=== PATIENT | female | born 1930 | race Caucasian/White ===

== ENCOUNTER 2016-05-19 12:19 | Inpatient (IN) | payer MEDICARE, OTHER ==
[~2016-05-19] VITALS: Ht 152.4 cm; Wt 66.8 kg
[2016-05-19 12:28] VITALS: BP 135/78; PULSE 106; RESP 20; O2SAT 95
[2016-05-19] MEDS ORDERED: SULF1TAB34 PO (12:46)
[2016-05-19] MEDS ORDERED: HYDR-4003 PO (12:46)
[2016-05-19] MEDS ORDERED: AMOX-366 PO (12:46)
[2016-05-19] MEDS ORDERED: AMLO5TAB2 PO (12:48)
[2016-05-19] MEDS ORDERED: CYCL1DRO BOTH_EYES (12:48)
[2016-05-19] MEDS ORDERED: MULT-1073 PO (12:48)
[2016-05-19] MEDS ORDERED: ASPI81TA3 PO (12:48)
[2016-05-19] MEDS ORDERED: 0.9% Sodium Chloride 1,000 ML IV ONE (13:13)
--- NOTE | 2016-05-19 13:35 | ED.REPORT ---
HPI-Extremity Problem Lower Date of Service May 19, 2016 ED Provider: Dominic Stephens PA-C Wilfrid is an 86-year-old female who presents with a chief complaint of right foot cellulitis. Patient states that she first noticed a sore on her right great toe approximately one month ago. About one week later she was started on antibiotics including Augmentin and Bactrim. These were ineffective and she is on her second round. Pain, redness, swelling is increasing. She was asked to present to the emergency department by Dr. Alanis who feels she should be admitted. Patient admits right foot pain as well as new pain in her left great toe, but denies any other complaints. History of Sjogren syndrome and hypertension. Nursing Notes Stated Complaint: INFECTION IN R FOOT Chief Complaint: Extremity Trauma Nursing Notes Reviewed: Yes Allergies: Coded Allergies: No Known Allergies (Unverified , 05/19/16) Scheduled Amlodipine (Amlodipine) 5 Mg Tablet 5 MG PO DAILY Amoxicillin/Clav K 875-125 mg (Augmentin 875-125 mg) 1 Each Tablet 1 TABLET PO BID Aspirin Chew (Aspirin Chew) 81 Mg Chew 81 MG PO DAILY Cyclosporine (Restasis) 1 Each Droperette 1 DROP BOTH_EYES BID Fluocinolone 0.01% Cream (Fluocinolone 0.01% Cream) 60 Applic/15 Gm Cream 1 APPLIC TOPICAL BID Multivits-Min/FA/Lycopene/Lut (Centrum Silver Tablet) 1 Each Tablet 1 EACH PO DAILY Neomy Sulf/Bacitra/Polymyxin B (Triple Antibiotic Ointment) 1 Appl/0.9 Gm Packet 1 APPL TOP DAILY apply to sore on foot/toe Sulfamethoxazole/Trimeth 400-80 mg (Bactrim 400-80 mg) 1 Each Tablet 1 TABLET PO BID Scheduled PRN Hydrocodone-Acetaminophen 5-325 mg (Hydrocodone-Acetaminophen 5-325 mg) 1 Each Tablet 1 TABLET PO Q6H PRN PRN For Pain General Time Seen by MD: 13:01 Chief Complaint Foot injury right Past Medical History Past Medical History Sjgren syndrome Reports: Hypertension Review of Systems General: Denies fever, chills, malaise. HEENT: Denies congestion, headache, sore throat. Respiratory: Denies dyspnea, cough, shortness of breath, wheezing. Cardiovascular: Denies chest pain, palpitations. Gastrointestinal: Denies vomiting, diarrhea, abdominal pain. Genitourinary: Denies frequency, urgency, dysuria, hematuria. Otherwise as noted in HPI. Physical Exam General: Well developed, thin, no acute distress. Right foot: Redness, swelling, heat across forefoot and advancing up dorsal surface towards leg. Tenderness over the great toe. Area of eschar forming on great toe. Open sore between fourth and fifth digits. 2, 1 cm crusted sores on the dorsal surface of the mid foot. Head: Atraumatic, normocephalic. Eyes: No scleral icterus or injection. No discharge. Vision grossly intact. ENT: Voice clear, hearing grossly intact. Respiratory: Regular rate and rhythm. Breath sounds present, clear to auscultation and equal bilaterally. Cardiovascular: Regular rate and rhythm, without murmur, gallop or rub. No pedal edema. PT and DP pulses are not appreciated. Gastrointestinal: Abdomen flat and non-tender without guarding or rebound. Bowel sounds normoactive. Skin: Warm and dry. Neurological: Grossly nonfocal. Psychological: Alert and oriented. Speech appropriate, linear and logical. Behavior appropriate. Initial Vital Signs Vital Signs (First) Date Time Temp Pulse Resp B/P Pulse Ox O2 Delivery O2 Flow Rate FiO2 05/19/16 12:28 36.4 106 20 135/78 95 Room Air Pulse measured at approximately 90 bpm by CHANTELLE Stephens at 1315 Initial VS: Reviewed Interpretation & Diagnostics Lab Results Interpretation Result Diagram: 05/19/16 1400 05/19/16 1400 Test 05/19/16 14:00 White Blood Count 16.0th/mm3 (3.8-10.1) Red Blood Count 4.49mil/mm3 (3.90-5.20) Hemoglobin 12.8g/dL (12.0-15.6) Hematocrit 38.5% (35.0-46.0) Mean Corpuscular Volume 85.7fL (81-100) Mean Corpuscular Hemoglobin 28.5pg (27.0-35.0) Mean Corpuscular Hemoglobin Concent 33.2% (32.0-37.0) Red Cell Distribution Width 14.8% (12.3-15.4) Platelet Count 238bil/L (150-400) Neutrophils (%) (Auto) 74.0% (40-74) Lymphocytes (%) (Auto) 15.5% (14-46) Monocytes (%) (Auto) 8.2% (4-12) Eosinophils (%) (Auto) 1.7% (0-5) Basophils (%) (Auto) 0.3% (0-3) Sodium Level 137mEq/L (134-144) Potassium Level 4.7mEq/L (3.5-5.2) Chloride Level 102mEq/L (97-108) Carbon Dioxide Level 21mmol/L (18-29) Blood Urea Nitrogen 24mg/dL (8-27) Creatinine 1.30mg/dL (0.57-1.00) Estimat Glomerular Filtration Rate 56mL/min (>59) Glucose Level 96mg/dL (60-99) Lactic Acid Level 0.8mmol/L (0.4-2.0) Calcium Level 9.2mg/dL (8.5-10.1) Total Bilirubin 0.3mg/dL (0.0-1.2) Aspartate Amino Transf (AST/SGOT) 20U/L (0-50) Alanine Aminotransferase (ALT/SGPT) 11U/L (0-32) Alkaline Phosphatase 86U/L (25-165) Total Protein 7.0g/dL (6.4-8.4) Albumin 3.6g/dL (3.4-5.0) Re-Eval/Medical Decision Med Decision/Clinical Course This is an 86-year-old female who 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 History of hypertension but denies DM. Digital exam reveals redness and warmth and swelling in the forefoot, an area of eschar on the great toe, and a sore between the fourth and fifth digit. Patient is slightly tachycardic. White cell count of 16, lactate 0.8. Afebrile. Started the patient on IV ceftriaxone and vancomycin. Dr. Lopez called discussed the case with the hospitalist and arranged admission. Discharge & Departure Impression: Primary Impression: Cellulitis of foot Disposition: ADMITTED TO HOSPITAL Referrals: Dafne Avendano (PCP) EDSupervising Provider for APC: Luis Felipe Lopez MD Attending Statement Attending attestation: I saw this patient in conjunction with Dominic Stephens PA-C. I was present for all jones portions of the history taking and physical examination. I agree with the workup, evaluation, treatment and disposition. Dominic Medina MD, PA-C May 19, 2016 13:35 Luis Felipe Lopez MD May 19, 2016 20:31
[2016-05-19 14:16] LABS: BASOPHILS % (AUTO) 0.3 % (0-3); EOSINOPHILS % (AUTO) 1.7 % (0-5); MONOCYTES % (AUTO) 8.2 % (4-12); Mean Corpuscular Hemoglobin 28.5 pg (27.0-35.0); Mean Corpuscular Volume 85.7 fL (81-100); Platelet Count 238 bil/L (150-400)
--- NOTE | 2016-05-19 14:28 | DRSVH ---
PROCEDURE: X-RAY RIGHT FOOT COMPLETE, MINIMUM THREE VIEWS ([id number]) INDICATIONS: cellulitis TECHNIQUE: 3 views of the foot were acquired. COMPARISON: 04/25/2016 FINDINGS: Bones: Medial subluxation of the second proximal phalanx with corner fracture at the lateral base of the second proximal phalanx as before. No lytic lesions are identified. Arthritic changes also presen t at the tarsometatarsal joints, lateral greater than medial. Soft tissues: No tibiotalar joint effusion. Achilles tendon appears normal. IMPRESSION: 1. No significant interval change in the appearance of arthritis, second digit subluxation and corner fracture. Dictated by: Arley Roca M.D. on 05/19/2016 at 14:26 Approved by: Arley Roca M.D. on 05/19/2016 at 14:26
[2016-05-19] MEDS ORDERED: FLUO15CR TOPICAL (15:15)
[2016-05-19] MEDS ORDERED: cefTRIAXone Inj 2,000 MG in IV Premix 1 EACH IV ONE (15:15)
[2016-05-19] MEDS ORDERED: Vancomycin Dose per Pharmacist XX ONE (15:15)
--- NOTE | 2016-05-19 15:41 | PCM.HPMED ---
Subjective Date of Service May 19, 2016 Primary Provider: Admitting Physician: Primary Care Physician: Dafne Avendano Attending Physician: Chief Complaint: Right great toe pain/cellulitis History of Present Illness: Wilfrid is an 86-year-old female who presents with a chief complaint of right foot cellulitis. Patient states that she first noticed a sore on her right great toe approximately one month ago. About one week later she was started on antibiotics including Augmentin and Bactrim. These were ineffective and she is on her second round. Pain, redness, swelling is increasing. She was asked to present to the emergency department by Dr. Alanis who feels she should be admitted. Patient admits right foot pain as well as new pain in her left great toe, but denies any other complaints. History of Sjogren syndrome and hypertension. Review of Systems: Other than the pain in the foot of the entire review of systems is negative as noted below Gen.: No fevers chills weight loss weight gain Eyes: no visual disturbances or blurring vision HEENT: No nose/throat drainage, no pain in ears or throat, no hearing loss Lymph: No lymph nodes noted Cardiac: No chest pain, orthopnea, PND, palpitations , pedal edema or dyspnea on exertion Pulmonary: no cough, wheezing or bringing up of sputum GI: No anorexia nausea vomiting blood or black in the stool : no dysuria hematuria urinary frequency or decrease in urine output Musculoskeletal: Joint swelling no joint pain no new muscle aches or back pain Neuro: No syncope, seizures no loss of consciousness no new focal weakness, numbness or tingling Psychiatric: New new anxiety insomnia or depression Endocrine: No new heat or cold intolerances polyuria or polydipsia Hematology: No lymphadenopathy or easy bleeding or bruising noted skin: No new rashes, stasis dermatitis Allergies Coded Allergies: No Known Allergies (Unverified , 05/19/16) Home Medications Scheduled Amlodipine (Amlodipine) 5 Mg Tablet 5 MG PO DAILY Amoxicillin/Clav K 875-125 mg (Augmentin 875-125 mg) 1 Each Tablet 1 TABLET PO BID Aspirin Chew (Aspirin Chew) 81 Mg Chew 81 MG PO DAILY Cyclosporine (Restasis) 1 Each Droperette 1 DROP BOTH_EYES BID Fluocinolone 0.01% Cream (Fluocinolone 0.01% Cream) 60 Applic/15 Gm Cream 1 APPLIC TOPICAL BID Multivits-Min/FA/Lycopene/Lut (Centrum Silver Tablet) 1 Each Tablet 1 EACH PO DAILY Neomy Sulf/Bacitra/Polymyxin B (Triple Antibiotic Ointment) 1 Appl/0.9 Gm Packet 1 APPL TOP DAILY apply to sore on foot/toe Sulfamethoxazole/Trimeth 400-80 mg (Bactrim 400-80 mg) 1 Each Tablet 1 TABLET PO BID Scheduled PRN Hydrocodone-Acetaminophen 5-325 mg (Hydrocodone-Acetaminophen 5-325 mg) 1 Each Tablet 1 TABLET PO Q6H PRN PRN For Pain PMH HTN Sjogren syndrome Surgical History None reported Family History No known history of early diabetes or heart disease Exam Vital Signs Vital Sign - Last Date Time Temp Pulse Resp B/P Pulse Ox O2 Delivery O2 Flow Rate FiO2 05/19/16 12:28 36.4 106 20 135/78 95 Room Air Exam Gen.- A+ O 3 no apparent distress. Thin pleasant elderly female Eyes- open conjunctiva clear, pupils equal nonicteric Mouth- oral mucosa moist, no exudate ENT- ears normal, nose normal Neck- supple/trach midline CVS- RRR no murmur or gallop, JVD less than 6 cm Lungs CTA, no accessory muscle usage GI- NABS/NT soft Musc- moving 4 patient has hand deformities swollen neck and ulnar deviation consistent with rheumatoid arthritis, bilateral hammertoes crossing over from first to second and erythema of the one on the left spreading up and there is an area of the lunate indication is apparently already improving according to the nurse. Neuro- cranial nerves II through XII intact to gross examination, nonfocal Skin- warm and dry, no rashes/lesions/wounds noted Psych- pleasant and appropriate, Lab and Diagnostics Labs LFTs WNL Result Diagram: 05/19/16 1400 05/19/16 1400 X-Rays, CTs and MRIs R foot XR second digit subluxation and corner fracture. Concurrently reviewed by myself Assessment & Plan 86-year-old female outpatient failure of cellulitis of the left foot treated with amoxicillin and Bactrim. She was sent here for IV antibiotics by Dr. Alanis her ribber Cellulitis left foot-I will treat with Unasyn stopping the vancomycin and Rocephin. She has no history of MRSA, and no suggestion of it now. Rheumatoid arthritis- by physical exam we will check RA panel and ESR Bilateral hammertoes- ongoing trauma to the foot are probably the source of the skin breakdown and cellulitis, I cannot explain the fissures on her heels, we will go ahead and use Lac-Hydrin cream hopefully this helps Leukocytosis-likely secondary to infection follow up labs in the morning HTN-adequately controlled on home amlodipine. LASHELL vs CKD3-follow creatinine and adjust meds accordingly, elevated creatinine could be a result of Bactrim. Follow-up BMP in the a.m. Prophylaxis-DVT with heparin and SCDs, GI not indicated Disposition- full code from home? Marcello Ireland MD May 19, 2016 15:41
[2016-05-19 15:59] VITALS: BP 129/51; PULSE 49; RESP 18; O2SAT 94
[2016-05-19] MEDS ORDERED: Polyethylene Glycol (PEG) 17 Gm Powder PO PRN (16:05)
[2016-05-19] MEDS ORDERED: Alum-Mag Hydrox-Simeth 30 mL Suspension PO PRN (16:05)
[2016-05-19] MEDS ORDERED: Ondansetron 2 mg/mL 2 mL Inj IVPUSH PRN (16:05)
[2016-05-19 16:10] VITALS: BP 129/51; PULSE 49; RESP 18; O2SAT 94
[2016-05-19] MEDS: Sodium Chloride LOK Flush 10 mL Syringe IVFLUSH SCH (16:30)
[2016-05-19] MEDS ORDERED: 0.9% Sodium Chloride 250 ML ONE (16:45)
[2016-05-19 16:50] VITALS: BP 131/71; PULSE 85; RESP 18; O2SAT 91
[2016-05-19] MEDS ORDERED: NEOM1PAC2 TOP (17:07)
--- NOTE | 2016-05-19 17:12 | NUR ---
Admission Pt arrived to [facility] approx 1630, A&Ox3. Accompanied by dtr. Med Rec done by admit RN.
[2016-05-19 20:58] VITALS: BP 140/90; PULSE 74; RESP 18; O2SAT 96
[2016-05-19] MEDS: CYCLOSPORINE 0.05% AFFECT_EYE SCH (22:02)
[2016-05-19] MEDS: Heparin 5,000 Unit/mL Inj SUBQ SCH (22:02)
[2016-05-19] MEDS: Ampicillin-Sulbactam Inj 3,000 MG in 0.9% Sodium Chloride 100 ML IV SCH (22:02)
[2016-05-20] MEDS: Sodium Chloride LOK Flush 10 mL Syringe IVFLUSH SCH ×3 (00:30→14:22)
[2016-05-20 00:59] VITALS: BP 128/78; PULSE 80; RESP 18; O2SAT 97
[2016-05-20 01:10] LABS: APPEARANCE,URINE HAZY (CLEAR,HAZY); COLOR,URINE STRAW (YELLOW); OCCULT BLOOD,URINE NEGATIVE (NEGATIVE); UROBILINOGEN,URINE NORMAL (NORMAL)
[2016-05-20 05:47] VITALS: BP 161/64; PULSE 76; RESP 18; O2SAT 96
[2016-05-20 06:49] LABS: BASOPHILS % (AUTO) 0.4 % (0-3); EOSINOPHILS % (AUTO) 2.3 % (0-5); MONOCYTES % (AUTO) 7.7 % (4-12); Mean Corpuscular Hemoglobin 28.2 pg (27.0-35.0); Mean Corpuscular Volume 86.4 fL (81-100); NEUTROPHILS % (AUTO) 69.7 % (40-74); Platelet Count 229 bil/L (150-400)
--- NOTE | 2016-05-20 07:15 | NUR ---
Fall pt was found on sitting on her bottom on the floor next to her bed by the MINIATURE SET CONSTRUCTOR at 05:40. VSS at that time, BP 161/62, HR 76, RR 18, O2 sats 96% on RA, afebrile. pt reported she fell before using the toilet and that she "crawled back to bed but couldn't lift myself up", pt reported "I have been down here for at least an hour". pt denies having any pain other than her feet by saying "my feet are sore, that's why I'm here". Primary RN observed pt's skin and did not report seeing any acute changes from previous physical assessment. pt stated "[facility]" when asked why she did not use her call light. Bed alarm was reported as on and that the volume was low. pt reported "this is all my fault, it is only my pride that is hurt". pt verbalized understanding of when and how to use call light, credit charge authorizer reviewed call light button function and where to find call light on the bed if needed, pt verbalized understanding again. call light placed within reach, bed alarm on, care on-going.
[2016-05-20 07:42] LABS: ERYTHROCYTE SEDIMENTATION RATE 46 mm/hr (0-40)
--- NOTE | 2016-05-20 07:49 | NUR ---
Fall (see also charge nurse Melly García's note) PAYMENT PROCESSOR report pt found sitting on the floor at the bedside around 0550 while primary RN back and forth doing admission in room 3010 and taking care of pts at far the other end of the floor room 3026 to 3030. RN come to check pt, and incident report to charge nurse immediately and charge nurse to check pt with RN together, pt sitting on the floor, alert and orientedx3, denies hit her head or arms and legs, no bruises and abrasions or s/s of fx noted, VSS. RN last checked pt around 0420, pt appears lying in bed sleeping, bed alarm on, instructed PAYMENT PROCESSOR to keep bed alarm on always, PAYMENT PROCESSOR reports pt "trying to be independent". RN reinforce pt please please use call light when need OOB, [place] alarm on, oriented pt to call light again, call light within reach, pt verbalizes understanding and will use call light when need OOB. Addendum: 05/20/16 at 1846 by ELYSIA LYON RN When doing the rounds, the database report writer JOSE R taught and demonstrated to pt the use of call light when she need get out of bed or any other needs, pt alert and orientedx3, verbalized understanding, and she appeared knew how to use call light when she wanted to. Biofuels Plant Manager JOSE R set bed alarm before left pt room. When pt got out of bed and subsequently fell, database report writer JOSE R luz did not alarm.
[2016-05-20] MEDS: HYDROcodone-APAP 5-325 mg Tablet PO PRN (10:53)
[2016-05-20] MEDS: CYCLOSPORINE 0.05% AFFECT_EYE SCH ×2 (10:54→20:50)
[2016-05-20] MEDS: Heparin 5,000 Unit/mL Inj SUBQ SCH ×2 (10:55→20:49)
--- NOTE | 2016-05-20 11:38 | PCM.CHPPOD ---
Subjective Date of service May 20, 2016 History of Present Illness This 86-year-old female has been followed in the past several weeks as an outpatient for ischemic necrosis of the right hallux. Patient has critical limb ischemia on the right arterial duplex was ordered and was sent to cardiology for evaluation. Patient was seen by Dr. Sheldon who reordered the arterial duplex. This patient was last seen by me on 05/17/2016 was scheduled to be seen by Dr. Sheldon on 05/30/2016. Patient complained of some increasing foot pain and had developed a scratch on the ankle due to the postoperative boot. Her daughter had contacted me regarding referral to a vascular surgeon stating she was concerned about limb loss of the potential for which we had discussed. The right foot at last visit did show circumferential hyperemia appear which it was felt may have been ischemic hyperemia versus early cellulitis. The soft tissue necrosis of the hallux was non-progressive. I made wound care recommendations, reinitiated antibiotic therapy and expedited patient's visit to Dr. Sheldon to 05/26/2016. At that visit Dr. Sheldon felt the foot was cellulitic and patient presented to [facility] ED and was admitted through the hospitalist service. Patient has been nothing by mouth in preparation for surgery although apparently does not have revascularization procedure scheduled at this time. Patient is comfortable other than left foot pain denies fever chills or malaise. She is receiving morphine and Vicodin for right foot discomfort. Allergy Allergies: Coded Allergies: No Known Allergies (Unverified , 05/19/16) Medications Amlodipine (Amlodipine) 5 Mg Tablet 5 MG PO DAILY Amoxicillin/Clav K 875-125 mg (Augmentin 875-125 mg) 1 Each Tablet 1 TABLET PO BID Aspirin Chew (Aspirin Chew) 81 Mg Chew 81 MG PO DAILY Cyclosporine (Restasis) 1 Each Droperette 1 DROP BOTH_EYES BID Fluocinolone 0.01% Cream (Fluocinolone 0.01% Cream) 60 Applic/15 Gm Cream 1 APPLIC TOPICAL BID Hydrocodone-Acetaminophen 5-325 mg (Hydrocodone-Acetaminophen 5-325 mg) 1 Each Tablet 1 TABLET PO Q6H PRN PRN For Pain Multivits-Min/FA/Lycopene/Lut (Centrum Silver Tablet) 1 Each Tablet 1 EACH PO DAILY Neomy Sulf/Bacitra/Polymyxin B (Triple Antibiotic Ointment) 1 Appl/0.9 Gm Packet 1 APPL TOP DAILY apply to sore on foot/toe Sulfamethoxazole/Trimeth 400-80 mg (Bactrim 400-80 mg) 1 Each Tablet 1 TABLET PO BID Past Medical History Surgeries: Yes (appendectomy) Medical History: Surgical History: Social History Hx Alcohol Use: No Hx Substance Use: No Podiatry Consult Exam Vital Signs Vital Sign - Last Date Time Temp Pulse Resp B/P Pulse Ox O2 Delivery O2 Flow Rate FiO2 05/20/16 08:13 Supplement Oxygen 05/20/16 05:47 36.2 76 18 161/64 96 Intake and Output 05/19/16 05/19/16 05/20/16 Cumulative From/Thru 15:00 23:00 07:00 05/19/16 12:28 - 05/20/16 06:27 Intake Total 1000 ml 436 ml 437 ml 1873 ml Output Total 400 ml 400 ml Balance 1000 ml 436 ml 37 ml 1473 ml Intake Oral 436 ml 437 ml 873 ml IV Total 1000 ml 1000 ml Output Urine Total 400 ml 400 ml # Voids 1 1 Result Diagram: 05/20/16 0557 05/20/16 0557 Lab Test 05/19/16 14:00 05/20/16 00:00 05/20/16 05:57 Lactic Acid Level 0.8mmol/L (0.4-2.0) Total Bilirubin 0.3mg/dL (0.0-1.2) Aspartate Amino Transf (AST/SGOT) 20U/L (0-50) Alanine Aminotransferase (ALT/SGPT) 11U/L (0-32) Alkaline Phosphatase 86U/L (25-165) Total Protein 7.0g/dL (6.4-8.4) Albumin 3.6g/dL (3.4-5.0) Urine Color Straw (YELLOW) Urine Appearance Hazy (CLEAR,HAZY) Urine pH 6.0 (5.0-8.0) Urine Specific [place] 1.015 (1.003-1.035) Urine Protein Negativemg/dL (NEG,TRACE) Urine Glucose (UA) Negativemg/dL (NEGATIVE) Urine Ketones Negativemg/dL (NEGATIVE) Urine Occult Blood Negative (NEGATIVE) Urine Nitrite Negative (NEGATIVE) Urine Bilirubin Negative (NEGATIVE) Urine Urobilinogen Normalmg/dL (NORMAL) Urine Leukocyte Esterase Small (NEGATIVE) Urine RBC 0-2/hpf (0-2) Urine WBC 0-5/hpf (0-5) Urine Epithelial Cells Occasional/hpf (NONE-MOD) Urine Crystals None seen (NONE SEEN) Urine Bacteria Few/hpf (NONE-FEW) Urine Hyaline Casts None/lpf (NONE) Urine Granular Casts None seen (NONE SEEN) Urine Waxy Casts None seen (NONE SEEN) Urine Red Blood Cell Casts None seen (NONE SEEN) Urine White Blood Cell Casts None seen (NONE SEEN) Urine Mucus None seen (None Seen) Urine Trichomonas None seen (NONE SEEN) Urine Yeast None (NONE SEEN) Urinalysis Comment None Urine Culture Reflexed Indicated Hold Urine Received (Received) White Blood Count 13.5th/mm3 (3.8-10.1) Red Blood Count 4.86mil/mm3 (3.90-5.20) Hemoglobin 13.7g/dL (12.0-15.6) Hematocrit 42.0% (35.0-46.0) Mean Corpuscular Volume 86.4fL (81-100) Mean Corpuscular Hemoglobin 28.2pg (27.0-35.0) Mean Corpuscular Hemoglobin Concent 32.6% (32.0-37.0) Red Cell Distribution Width 14.7% (12.3-15.4) Platelet Count 229bil/L (150-400) Neutrophils (%) (Auto) 69.7% (40-74) Lymphocytes (%) (Auto) 19.5% (14-46) Monocytes (%) (Auto) 7.7% (4-12) Eosinophils (%) (Auto) 2.3% (0-5) Basophils (%) (Auto) 0.4% (0-3) Erythrocyte Sedimentation Rate 46mm/hr (0-40) Sodium Level 140mEq/L (134-144) Potassium Level 4.5mEq/L (3.5-5.2) Chloride Level 102mEq/L (97-108) Carbon Dioxide Level 21mmol/L (18-29) Blood Urea Nitrogen 18mg/dL (8-27) Creatinine 1.22mg/dL (0.57-1.00) Estimat Glomerular Filtration Rate 60mL/min (>59) Glucose Level 94mg/dL (60-99) Uric Acid 5.5mg/dL (2.6-7.2) Calcium Level 9.3mg/dL (8.5-10.1) Diagnostics 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 Exam Lower Extremities: Right: Edema localized Extremity cool Other Lower Extremity Pulses: Absent: Left Dorsalis Pedis Left Posterior Tibal Right Dorsalis Pedis Right Posterior Tibal Podiatry WOUND : Wound Location/Description There is a region of dry necrosis of the right hallux epionychium and distal medial soft tissues adjacent to the nail plate, there is a full-thickness superficial scratch at the anterior ankle and several small dusky lesions along the course of the anterior tibial tendon without tendon exposure and several small dusky lesions on bony prominences on the lateral aspect of the foot. Additional Information: The right forefoot exhibits diffuse hyperemia, is somewhat cool with a delayed capillary refill. There is no fluctuance or suggestion of deep space abscess or infection. The skin of the left foot is intact and without ulcerations or evidence of infection. Assessment & Plan Assessment I feel this patient has critical limb ischemia, with ischemic necrosis of the right hallux, additional focal ischemic lesions developing and cellulitis of the right foot and does require urgent revascularization. Problems: Plan I contacted the field service rep fuel conversion technician who then contacted Dr. Phipps, the premix concrete batcher who does perform lower extremity angioplasty and he will see this patient on 05/29/2016. I do feel that although patient does require revascularization it is acceptable to wait until 05/29/2016. Patient may require debridement of the necrotic hallux at some point but since this is dry I do not feel there is any urgency and would prefer to allow the area to demarcate post revascularization. I will contact the patient's daughter who is not present but yet very involved in patient's healthcare regarding the proposed treatment plan. Patient will be seen tomorrow for recheck. VTE Mechanical Devices: Intermittant Pneumatic CD Robert Alanis DPM May 20, 2016 11:38
[2016-05-20] MEDS: Ampicillin-Sulbactam Inj 3,000 MG in 0.9% Sodium Chloride 100 ML IV SCH ×2 (11:53→22:32)
[2016-05-20] MEDS: HYDROmorphone 0.5 mg/0.5 mL iSecure Syringe IVPUSH SCH ×2 (14:22→20:30)
--- NOTE | 2016-05-20 15:31 | PCM.PNMED ---
Subjective Date of Service May 20, 2016 Subjective No overnight events. Pleasant elderly female, awake in bed, c/f severe right foot pain. She denies chills, fever, chest pain, shortness of breath, nausea. Exam Vital Signs Vital Sign - Last Date Time Temp Pulse Resp B/P Pulse Ox O2 Delivery O2 Flow Rate FiO2 05/20/16 08:13 Supplement Oxygen 05/20/16 05:47 36.2 76 18 161/64 96 Intake and Output 05/19/16 05/19/16 05/20/16 Cumulative From/Thru 15:00 23:00 07:00 05/19/16 12:28 - 05/20/16 06:27 Intake Total 1000 ml 436 ml 437 ml 1873 ml Output Total 400 ml 400 ml Balance 1000 ml 436 ml 37 ml 1473 ml Intake Oral 436 ml 437 ml 873 ml IV Total 1000 ml 1000 ml Output Urine Total 400 ml 400 ml # Voids 1 1 Exam General: No fevers or chills, in NAD HEENT: NCAT Cardiac: RRR no murmur or gallop Lungs: CTA, no accessory muscle usage Abdomen: NABS/NT soft Extr: right foot swelling, erythema, ischemic necrosis of the right hallux, bilateral hammertoes crossing over Vasc:dorsalis pedis pulse not palpable b/l Skin: warm and dry, no rashes/lesions/wounds Psych: pleasant and appropriate Lab and Diagnostics Result Diagram: 05/20/16 0557 05/20/16 0557 X-Rays, CTs and MRIs R foot XR second digit subluxation and corner fracture. Concurrently reviewed by myself Assessment & Plan Patient is an 86-year-old female with h/o Sjorgen syndrome and hypertension presented to [facility] with outpatient failure of cellulitis of the right foot treated with amoxicillin and bactrim. She was sent for IV antibiotics by Dr. Alanis who is her hat model. # Cellulitis of the right foot, chronic, present on admission - right forefoot hyperemia - WBC 13.5, continue to monitor - Unasyn 3mg IV q12h - Dilaudid 0.5 mg IV q6 h # Limb ischemia, with ischemic necrosis of the right hallux, chronic, present on admission - right foot diffuse hyperemia with necrotic right hallux - need for revascularization - , the loom fixer, who does perform lower extremity angioplasty will see this patient on 05/29/2016 # Leukocytosis, acute, present on admission - WBC 16.0 on admission, 13.5 the next day - likely secondary to infection, will continue to monitor # LASHELL vs CKD3 - Cr 1.30 on admission, 1.22 the following day. Baseline Cr around 0.5. Elevation in Cr could be d/t bactrim - will follow creatinine and adjust meds accordingly # Rheumatoid arthritis, chronic, present on admission - RA panel pending; ESR 46 # Hypertension, chronic, stable - adequately controlled on home amlodipine Pain Evaluation: Adequate Pain Control GI Prophylaxis: Not indicated VTE Prophylaxis: Sub-Q Heparin (Unfractionated), SCDs VTE Mechanical Devices: Intermittant Pneumatic CD Resuscitation Status: CPR: Attempt Resuscitation Attending Statement The patient was seen and examined together with Dr. Caldwell on 05/20/2016 and I agree with the history, exam and plan as outlined in the note above. copies to: Dafne Avendano OKSANA S DO May 20, 2016 15:31 Byron Wilson MD May 21, 2016 11:15
[2016-05-20 17:34] VITALS: BP 147/77; PULSE 93; RESP 20; O2SAT 95
--- NOTE | 2016-05-20 17:46 | NUR ---
Activity/RLE/son's concerns Pt continues to self transfer to [facility] despite bed alarm in place, frequent staff rounding and education to call staff prior to getting OOB. Per pt, "I don't want to bother anyone." RLE kept elevated on two pillows this shift while pt in bed. Inspector [employer] in this AM to see pt. Son at bedside this afternoon, states pt has "an appointment for surgery on May 22 at 1330 in afternoon" and states that it is "critical that this surgery takes place." Per son, surgery is with Dr Sheldon and this was confirmed with pt's daughter. Spoke with hospitalist re: son's statements and she is req that podiatry clarify plan with family in AM.
[2016-05-20 20:24] VITALS: BP 138/70; PULSE 90; RESP 20; O2SAT 96
[2016-05-21] MEDS: Sodium Chloride LOK Flush 10 mL Syringe IVFLUSH SCH ×4 (00:25→22:31)
[2016-05-21] MEDS: HYDROmorphone 0.5 mg/0.5 mL iSecure Syringe IVPUSH SCH ×4 (02:30→20:30)
[2016-05-21 05:11] VITALS: BP 138/79; PULSE 86; RESP 20; O2SAT 97
--- NOTE | 2016-05-21 07:10 | NUR ---
No pain issue Pt denies pain at right foot overnight, Dilaudid withholdx2 due to pt no pain and does not want to take it. Daughter called last evening and states pt "loopy" in the day, pt appears alert and orientedx3 through the night, but forgetful.
[2016-05-21 07:23] LABS: BASOPHILS % (AUTO) 0.2 % (0-3); EOSINOPHILS % (AUTO) 0.9 % (0-5); MONOCYTES % (AUTO) 6.4 % (4-12); Mean Corpuscular Hemoglobin 28.3 pg (27.0-35.0); Mean Corpuscular Volume 85.7 fL (81-100); Platelet Count 264 bil/L (150-400)
[2016-05-21] MEDS: CYCLOSPORINE 0.05% AFFECT_EYE SCH ×2 (08:30→20:30)
[2016-05-21] MEDS: Heparin 5,000 Unit/mL Inj SUBQ SCH ×2 (08:30→22:30)
--- NOTE | 2016-05-21 08:40 | NUR ---
PACO signed IRAM Blackwell
[2016-05-21] MEDS: Ampicillin-Sulbactam Inj 3,000 MG in 0.9% Sodium Chloride 100 ML IV SCH ×2 (09:58→22:31)
--- NOTE | 2016-05-21 10:19 | PCM.PNPOD ---
Subjective Date of Service: May 21, 2016 Date of Service: May 21, 2016 Visit Information: Reason for Visit Cellulitis Right Foot Surgery/Surgery Date Post-Op Day # Date of Admission: May 19, 2016 at 15:53 Hospital Day # Subjective: 86-year-old female is seen for follow-up of ischemic right foot with dry necrosis of the distal dorsal hallux and who is scheduled for INTERVENTIONAL PHYSIATRIST by of cardiology tomorrow. Patient states she is feeling well with the exception of right generalized forefoot and toe pain. Objective Vital Sign - Last Date Time Temp Pulse Resp B/P Pulse Ox O2 Delivery O2 Flow Rate FiO2 05/21/16 05:11 36.4 86 20 138/79 97 05/20/16 08:13 Supplement Oxygen Intake and Output 05/20/16 05/20/16 05/21/16 Cumulative From/Thru 14:59 22:59 06:59 05/19/16 12:28 - 05/21/16 06:37 Intake Total 160 ml 320 ml 424 ml 2777 ml Output Total 500 ml 700 ml 1600 ml Balance 160 ml -180 ml -276 ml 1177 ml Intake Oral 320 ml 322 ml 1515 ml IV Total 160 ml 102 ml 1262 ml Output Urine Total 500 ml 700 ml 1600 ml # Voids 1 Result Diagram: 05/21/16 0658 05/21/16 0658 Lab Test 05/19/16 14:00 05/20/16 00:00 05/20/16 05:57 05/21/16 06:58 Lactic Acid Level 0.8mmol/L (0.4-2.0) Urine Color Straw (YELLOW) Urine Appearance Hazy (CLEAR,HAZY) Urine pH 6.0 (5.0-8.0) Urine Specific [place] 1.015 (1.003-1.035) Urine Protein Negativemg/dL (NEG,TRACE) Urine Glucose (UA) Negativemg/dL (NEGATIVE) Urine Ketones Negativemg/dL (NEGATIVE) Urine Occult Blood Negative (NEGATIVE) Urine Nitrite Negative (NEGATIVE) Urine Bilirubin Negative (NEGATIVE) Urine Urobilinogen Normalmg/dL (NORMAL) Urine Leukocyte Esterase Small (NEGATIVE) Urine RBC 0-2/hpf (0-2) Urine WBC 0-5/hpf (0-5) Urine Epithelial Cells Occasional/hpf (NONE-MOD) Urine Crystals None seen (NONE SEEN) Urine Bacteria Few/hpf (NONE-FEW) Urine Hyaline Casts None/lpf (NONE) Urine Granular Casts None seen (NONE SEEN) Urine Waxy Casts None seen (NONE SEEN) Urine Red Blood Cell Casts None seen (NONE SEEN) Urine White Blood Cell Casts None seen (NONE SEEN) Urine Mucus None seen (None Seen) Urine Trichomonas None seen (NONE SEEN) Urine Yeast None (NONE SEEN) Urinalysis Comment None Urine Culture Reflexed Indicated Hold Urine Received (Received) Erythrocyte Sedimentation Rate 46mm/hr (0-40) Uric Acid 5.5mg/dL (2.6-7.2) White Blood Count 19.8th/mm3 (3.8-10.1) Red Blood Count 4.81mil/mm3 (3.90-5.20) Hemoglobin 13.6g/dL (12.0-15.6) Hematocrit 41.2% (35.0-46.0) Mean Corpuscular Volume 85.7fL (81-100) Mean Corpuscular Hemoglobin 28.3pg (27.0-35.0) Mean Corpuscular Hemoglobin Concent 33.0% (32.0-37.0) Red Cell Distribution Width 14.6% (12.3-15.4) Platelet Count 264bil/L (150-400) Neutrophils (%) (Auto) 80.0% (40-74) Lymphocytes (%) (Auto) 12.2% (14-46) Monocytes (%) (Auto) 6.4% (4-12) Eosinophils (%) (Auto) 0.9% (0-5) Basophils (%) (Auto) 0.2% (0-3) Sodium Level 143mEq/L (134-144) Potassium Level 4.5mEq/L (3.5-5.2) Chloride Level 102mEq/L (97-108) Carbon Dioxide Level 20mmol/L (18-29) Blood Urea Nitrogen 21mg/dL (8-27) Creatinine 1.22mg/dL (0.57-1.00) Estimat Glomerular Filtration Rate 60mL/min (>59) Glucose Level 65mg/dL (60-99) Calcium Level 9.3mg/dL (8.5-10.1) Total Bilirubin 0.4mg/dL (0.0-1.2) Aspartate Amino Transf (AST/SGOT) 25U/L (0-50) Alanine Aminotransferase (ALT/SGPT) 13U/L (0-32) Alkaline Phosphatase 97U/L (25-165) Total Protein 6.9g/dL (6.4-8.4) Albumin 3.8g/dL (3.4-5.0) Diagnostics X-ray negative for osteomyelitis, elevation of white count in 19.8, modest ESR elevation at 46, and creatinine at 1.22 . Exam Lower Extremities: Right: Edema localized Extremity cool Other Lower Extremity Pulses: Absent: Left Dorsalis Pedis Left Posterior Tibal Right Dorsalis Pedis Right Posterior Tibal Additional Information: Lower extremity exam shows reduced generalized erythema of the right foot, necrotic tissue of the hallux is dry, non-progressive. There are multiple dry escharotic lesions on the anterior ankle and lateral forefoot, none of which appear new, overall the foot appears stable. Pulses continue to be nonpalpable with capillary refill delayed in the foot mildly cool. Assessment & Plan Impression Clinically improving cellulitis of the right foot, otherwise stable moderately ischemic right foot with no new lesions, source of elevated white count uncertain however clinical appearance of the foot suggests improvement, thus alternative source must be considered. Problems: Plan Patient scheduled for INTERVENTIONAL PHYSIATRIST by Dr. Stevens tomorrow, I did speak with patient's daughter Josefina yesterday and podiatry will monitor progression of the foot and soft tissue lesions with debridement and local wound care as indicated. VTE Prophylaxis: Sub-Q Heparin (Unfractionated), Robert Young DPM May 21, 2016 10:19
--- NOTE | 2016-05-21 10:44 | NUR ---
Social Work: Initial Assessment Data: Pt is an 86 y/o female admitted for cellulitis right foot. Pt's PCP is Dr Avendano, pt's insurance is Medicare with [employer] [facility] EMR reviewed. STOCK LIFTER met with pt at bedside, role explained. Pt states that she lives alone in a single story home where she uses no DME, but owns a walker. Pt states she typically drives, has no history of HH or SNF, no LTC or VA benefits, and is not a caregiver for another. Pt reports her daughter Josefina listed as TANYA is a good support to contact if needed and is also her DPOA, STOCK LIFTER requested DPOA paperwork from pt. STOCK LIFTER will continue to follow for possible HH need. Assessment: Pt who is independent at baseline. Plan: Pt will d/c home via POV with family when medically stable. STOCK LIFTER will continue to follow for possible HH need. IRAM Blackwell Addendum: 05/21/16 at 1049 by ELVIA RESENDIZ Amended: Links added.
--- NOTE | 2016-05-21 10:47 | PCM.PNMED ---
Subjective Date of Service May 21, 2016 Subjective Pt continues to complain of a sore right foot. She denies any fever, chills, or nausea overnight. She states the erythema over her right foot does not appear improved. She has no other complaints or concerns at this time. Exam Vital Signs Vital Sign - Last Date Time Temp Pulse Resp B/P Pulse Ox O2 Delivery O2 Flow Rate FiO2 05/21/16 05:11 36.4 86 20 138/79 97 05/20/16 08:13 Supplement Oxygen Intake and Output 05/20/16 05/20/16 05/21/16 Cumulative From/Thru 15:00 23:00 07:00 05/19/16 12:28 - 05/21/16 06:37 Intake Total 160 ml 320 ml 424 ml 2777 ml Output Total 500 ml 700 ml 1600 ml Balance 160 ml -180 ml -276 ml 1177 ml Intake Oral 320 ml 322 ml 1515 ml IV Total 160 ml 102 ml 1262 ml Output Urine Total 500 ml 700 ml 1600 ml # Voids 1 Exam GENERAL: NAD, Pt laying in bed comfortably HEENT: AT/NC, PERRLA, EOMI, Mucus Membranes are moist CARDIAC: RRR; No M/R/G PULM: CTAB; No wheezes or rhonchi bilaterally EXT: No C/C/E; No calf tenderness bilaterally SKIN: Erythematous right foot with TTP up to the ankle and mild overlying calor without any induration NEURO: Alert and oriented x3; Following all commands PSYCH: Normal mood and affect IVs and Medications Medications Reviewed: Medications were reviewed in detail Lab and Diagnostics Result Diagram: 05/21/1665705/21/16657 X-Rays, CTs and MRIs R foot XR second digit subluxation and corner fracture. Concurrently reviewed by myself Assessment & Plan Patient is an 86-year-old female with h/o Sjorgen syndrome and hypertension presented to [facility] with outpatient failure of cellulitis of the right foot treated with amoxicillin and bactrim. She was sent for IV antibiotics by Dr. Alanis who is her cut press operator. 1. Cellulitis, Right Foot, chronic - Her infection will be very difficult to treat due to decreased blood supply to right foot, see #2 - WBC count is further elevated today - Check CRP and Procalcitonin now - Repeat CBC with diff in AM - Continue IV Unasyn 3 grams q 12 hours for now - Continue IV Dilaudid PRN for pain relief 2. Right Foot Ischemia - Pt has ischemic necrosis of the right hallux - Pt to be evaluated and possibly have revascularization procedure by Interventional Cardiology on 05/22/2016 3. Chronic Kidney Disease, Stage I - Stable - Avoid nephrotoxic medications - Monitor renal function 4. Essential Hypertension - Well controlled - Continue home Amlodipine GI Prophylaxis: Not indicated VTE Prophylaxis: Sub-Q Heparin (Unfractionated), SCDs VTE Mechanical Devices: Intermittant Pneumatic CD Resuscitation Status: CPR: Attempt Resuscitation Byron Wilson MD May 21, 2016 10:47
--- NOTE | 2016-05-21 18:28 | NUR ---
Pain/nausea/diarrhea Pt c/o "pretty good" pain in R toes this morning, scheduled analgesic given with effective results. Keeping LE's elevated and ensuring blankets are not pulled tight over toes. Pt has not attempted to self transfer this shift thus far. Pt did have one episode of diarrhea, stated she was not aware that it had happened. Shortly after, pt c/o nausea, PRN antiemetic given with effective results. No other c/o nausea or bouts of loose stools. Bed in lowest, locked position and call light in reach.
[2016-05-21 18:43] VITALS: BP 105/65; PULSE 95; RESP 18; O2SAT 94
[2016-05-21 21:39] VITALS: BP 124/57; PULSE 94; RESP 18; O2SAT 94
[2016-05-21] MEDS: HYDROcodone-APAP 5-325 mg Tablet PO PRN (23:22)
[2016-05-22] VITALS (17 sets, daily range): BP systolic 103–142; BP diastolic 46–87; PULSE 65–97; RESP 16–20; O2SAT 83–97
[2016-05-22] MEDS: HYDROmorphone 0.5 mg/0.5 mL iSecure Syringe IVPUSH SCH ×4 (01:25→22:06)
[2016-05-22 06:23] LABS: BASOPHILS % (AUTO) 0.2 % (0-3); EOSINOPHILS % (AUTO) 0.6 % (0-5); Mean Corpuscular Hemoglobin 28.2 pg (27.0-35.0); Mean Corpuscular Volume 85.3 fL (81-100); NEUTROPHILS % (AUTO) 75.7 % (40-74); Platelet Count 250 bil/L (150-400)
[2016-05-22] MEDS: Heparin 5,000 Unit/mL Inj SUBQ SCH (08:30)
[2016-05-22] MEDS: CYCLOSPORINE 0.05% AFFECT_EYE SCH ×2 (09:09→22:05)
[2016-05-22] MEDS: Sodium Chloride LOK Flush 10 mL Syringe IVFLUSH SCH ×3 (09:10→22:06)
[2016-05-22] MEDS: 0.9% Sodium Chloride 1,000 ML IV SCH ×2 (09:20→19:15)
--- NOTE | 2016-05-22 09:29 | PCM.PNMED ---
Subjective Date of Service May 22, 2016 Subjective Wilfrid reports having pain in both of her feet this morning with the right foot being much more painful than the left. She was able to sleep well overnight without being awoken by the pain. Feeling fatigued. Denies any chills. Exam Vital Signs Vital Sign - Last Date Time Temp Pulse Resp B/P Pulse Ox O2 Delivery O2 Flow Rate FiO2 05/22/16 05:49 36.7 81 20 135/65 93 Room Air Intake and Output 05/21/16 05/21/16 05/22/16 Cumulative From/Thru 15:00 23:00 07:00 05/19/16 12:28 - 05/22/16 06:55 Intake Total 146 ml 666 ml 0 ml 3589 ml Output Total 450 ml 2050 ml Balance 146 ml 216 ml 0 ml 1539 ml Intake Oral 666 ml 0 ml 2181 ml IV Total 146 ml 1408 ml Output Urine Total 450 ml 2050 ml # Voids 1 2 # Bowel Movements 1 1 Exam General: Elderly female patient visiting with family upon my entering the room, mildly uncomfortable appearing though without acute distress. HEENT: mucus membranes moist, sclera anicteric Cardiac: RRR, no murmur, rub, or gallop Resp: good inspiratory effort, no wheezes, rales, or rhonchi Extremities: No clubbing or cyanosis. There is erythema on the right foot with ink markings proximal to the malleoli, the erythema remains 1cm distal to the ink markings anteriorly and at the level of the ink medially. There is a dark brown callus present on the distal hallux with a 3mm area of maceration on the superior surface of the hallux. The 2nd toe is adducted with its distal end laying superior to the hallux, laying just over the area of maceration. Pedal pulses not palpable on either foot. The left foot is pink and warm. The right foot is cold. Not wearing SCDs. Lab and Diagnostics Result Diagram: 05/22/16 0600 05/22/16 0600 X-Rays, CTs and MRIs 05/19/16 Right foot xrays FINDINGS: Bones: Medial subluxation of the second proximal phalanx with corner fracture at the lateral base of the second proximal phalanx as before. No lytic lesions are identified. Arthritic changes also present at the tarsometatarsal joints, lateral greater than medial. Soft tissues: No tibiotalar joint effusion. Achilles tendon appears normal. IMPRESSION: 1. No significant interval change in the appearance of arthritis, second digit subluxation and corner fracture. Dictated by: Arley Roca M.D. on 05/19/2016 at 14:26 Assessment & Plan Wilfrid is an 86yo female with h/o Sjogrens syndrome and hypertension who presented to [facility] after outpatient treatment of cellulitis of the right foot with amoxicillin and bactrim failed. Her outpatient nickel operator, Dr Alanis, has consulted with her care during this hospitalization. Hospital day #3. 1. Cellulitis, Right Foot, chronic - Difficult to treat due to ischemia, see #2 below. - WBC count continues to rise - Monitor CBC - Continue IV Unasyn 3 grams q 12 hours - Continue IV Dilaudid PRN for pain relief 2. Right Foot Ischemia of unclear chronicity - Ischemic necrosis of the right hallux present with pressure from the subluxed 2nd toe creating an area of maceration - Revascularization procedure by Interventional Cardiology today which will allow for improved delivery of the IV ABX - Anticipate improvement of the cellulitis once her vascular supply is improved 3. Chronic Kidney Disease, Stage I - Stable - Avoid nephrotoxic medications - Continue to monitor creatinine 4. Essential Hypertension, chronic, quiescent - Well controlled - Continue home Amlodipine GI Prophylaxis: Not indicated VTE Prophylaxis: Sub-Q Heparin (Unfractionated), SCDs VTE Mechanical Devices: Intermittant Pneumatic CD Resuscitation Status: CPR: Attempt Resuscitation Attending Statement The patient was seen and examined together with Dr. Gee on 05/22/2016 and I agree with the history, exam and plan as outlined in the note above. Kourtney Gee DO May 22, 2016 09:29 Byron Wilson MD May 23, 2016 09:59
[2016-05-22] MEDS: Ampicillin-Sulbactam Inj 3,000 MG in 0.9% Sodium Chloride 100 ML IV SCH ×2 (10:55→22:06)
[2016-05-22 11:01] LABS: INR 1.05 ratio
[2016-05-22] MEDS ORDERED: Sodium Bicarb 8.4% 150 mEq/1,000 mL D5W IV ONE ×2 (11:46)
--- NOTE | 2016-05-22 12:00 | NUR ---
Pain/roach/IV Pt reports pain 5/10, IV dilaudid not controlling pain, 2 tabs of [place] given. Roach catheter and additional IV placed prior [place] [facility] [place].
[2016-05-22] MEDS ORDERED: fentaNYL-PF 50 mCg/mL 2 mL Inj IVPUSH ONE (12:29)
[2016-05-22] MEDS ORDERED: Nitroglycerin 50 mg/250 mL D5W 50,000 MCG in IV Premix 1 EACH IV ONE (12:29)
[2016-05-22] MEDS ORDERED: [UNRECOGNIZED DRUG - OTHER] IV ONE (12:29)
[2016-05-22] MEDS ORDERED: Heparin 1,000 Unit/mL 10 mL Inj IVPUSH ONE (12:29)
[2016-05-22] MEDS ORDERED: HEPARIN IV ONE (12:29)
[2016-05-22] MEDS ORDERED: Heparin 1,000 Units/500 mL NS 1,000 UNIT in IV Premix 1 EACH IV ONE (12:29)
[2016-05-22] MEDS: HYDROcodone-APAP 5-325 mg Tablet PO PRN (12:37)
--- NOTE | 2016-05-22 19:27 | CONS ---
[address] [address] CONSULTATION REPORT PATIENT: NICOLE HARTMANN : 1930 MR#: [id number] ADMIT: 05/19/2016 JOB ID: [id number] DATE OF SERVICE: 05/22/2016 CHIEF COMPLAINT: Nonhealing wound, peripheral vascular disease. HISTORY OF PRESENT ILLNESS: The patient is an 86-year-old woman with recent problems with a nonhealing wound affecting her right foot. She had noninvasive Doppler studies performed which confirmed a high-grade stenosis in the distal SFA. She was doing well when I initially met her, but it got progressively worse with a progressive cellulitis, despite antibiotic treatment., She was admitted to the hospital on Sunday. Since starting the antibiotics, she still has some foot pain. She has had some mild improvement of the cellulitis with antibiotics that have been given. She has not had any problems with chest pain, shortness of breath, palpitations, presyncope, syncope. PAST MEDICAL HISTORY/PROBLEM LIST: 1. Hypertension. 2. Recent diagnosis of peripheral vascular disease with infection of the right foot. MEDICATIONS: At home, include: 1. Amlodipine 5 mg daily. 2. Augmentin 875/125 daily. 3. Aspirin 81 mg a day. 4. Cyclosporine drops. 5. Fluconazole cream. 6. MultiVites. 7. Bactrim 400/80 one tablet b.i.d. ALLERGIES: No known drug allergies. SOCIAL HISTORY: No tobacco use. No significant alcohol use. FAMILY HISTORY: No early coronary disease. REVIEW OF SYSTEMS: Consitutional: No fevers, chills, night sweats, or weight loss. GI: No problems with ulcers or blood in her stool. : No dysuria, no hematuria. Borderline renal function. Musculoskeletal: Right foot pain but no other joint pain. Derm: She has a cellulitis but no other rashes or skin breakdown. Neuro: No history of stroke or TIA. No chronic headaches. Endocrine: No heat or cold intolerance. No diabetes mellitus. ENT: No difficultly swallowing. No sore throat. Ophtho: No vision changes. Psych: No acute issues. Hematology: No easy bruising or bleeding. Pulmonary: No problems with shortness of breath. Cardiac: No orthopnea, PND, lower extremity edema. all other components of a 12 point ROS negative. PHYSICAL EXAMINATION: Her blood pressure is 135/65, heart rate 81, sats are 92% on room air. General: In no acute distress. Speaking in full sentences without pressured breath. Head and neck exam: Normocephalic, atraumatic. Neck: No obvious JV distention. Heart exam: Regular rate and rhythm. I do not appreciate murmurs, gallops, rubs. Lungs sound clear. Back: No CVA tenderness to palpation. Abdomen: Soft, nontender. Extremities: The left leg is warm. No discoloration. I can palpate a dorsalis pedis pulse on the left. Right leg, there is cellulitis with some skin breakdown associated in the area where the boot was, although this appears improved since Sunday. She has a wound affecting her great toe as well. Vascular: I cannot palpate pulses on right foot. No carotid bruits. Skin: As noted with cellulitis. Psych: Appropriate mood and affect. Neuro: alert and oriented. ENT: dry mouth Vision: grossly normal LABORATORY: Shows a white count 23.3, H and H 12.9, 39, platelets of 250,000. Chemistry shows sodium 141, potassium 3.8, chloride and bicarb 103 and 23 respectively, BUN and creatinine 24 and 1.35. Her sed rate is elevated. Immunology: An JOANA screen is positive. CURRENT MEDICATIONS: Inpatient, include: 1. Ampicillin. 2. Sulbactam IV. 3. Amlodipine. 4. Subcu heparin. 5. Aspirin. 6. Other p.r.n. medications. 7. She is also written for Vicodin p.r.n. IMAGING STUDIES: Show a lower extremity Doppler study which suggests a high-grade stenosis of the distal SFA. IMPRESSION: The patient has had worsening of a wound affecting her right leg. She now appears to have a cellulitis which does, to my eye, seem somewhat improved compared to the way the foot looked last Sunday on the . PLAN: Today, we take her for a lower extremity angiogram with possible [facility] C[facility] ASSISTANT. Try to minimize the use of contrast given her renal function I have started her on normal saline, and it looks like somebody started her on bicarb as well. Hopefully we can open up a vessel and improve blood flow to the leg. At that point, I would advise we continue with antibiotics and allow the cellulitis to clear and observe her wound for improvement prior to any significant debridement MTDD
--- NOTE | 2016-05-22 19:41 | NUR ---
Post Right leg revascularization Pt up from [facility] at about 1835 to room 2023. Report Received from [facility] RN and [facility] RN. Pt stating no pain at this time "even in my feet". Vitals charted. [facility] RN noted small pea size hematoma to left groin site with no change in size after transfer. Report given to oncoming RN. While giving report to oncoming RN, noted large 3 inch bruise to right inner thigh. Oncoming RN taken over care, contacting [facility] at this time for more information.
--- NOTE | 2016-05-22 20:31 | CS94 ---
[address] [address] DIAGNOSTIC CARDIAC CATHETERIZATION PATIENT: NICOLE HARTMANN : 1930 MR#: [id number] ADMIT: 05/19/2016 JOB ID: [id number] SERVICE DATE: 05/22/2016 PROCEDURES PERFORMED: 1. Abdominal aortography. 2. Bilateral iliac angiography. 3. Bilateral runoff down to the level of the foot. 4. Focal angiography at the level of the distal right superficial femoral artery 6. Percutaneous intervention of the distal superficial femoral artery on the right INDICATIONS: This is an 86-year-old woman with a recent wound that has not improved and has progressed to having overt cellulitis. She has recently identified peripheral vascular disease and given her worsening condition presents for further assessment by peripheral angiography. DESCRIPTION OF PROCEDURE: Informed consent was obtained. The patient brought to catheterization laboratory. Bilateral groins are prepped and draped in sterile fashion. The area over the left femoral artery was anesthetized with lidocaine and using a micropuncture kit and modified Seldinger technique, access was obtained and a 4-Icelandic sheath was advanced. Next, a 4-Icelandic pigtail catheter was advanced up into the abdominal aorta. Aortogram with iliac runoff and bilateral runoff was performed. Given findings of a high-grade stenosis in the right distal SFA, an intervention was planned. The pigtail catheter was removed and the sheath was changed out to a 5-Icelandic sheath. A 5-Icelandic rim catheter was advanced up to the level of the bifurcation using an angled glide wire. This was advanced down to the level of the common femoral artery on the right. Next, a glide Advantage wire was advanced through the rim catheter down to the level of the SFA and this was exchanged out for a 5-Icelandic Wojciech sheath which was advanced up to the level of the common femoral artery on the right. Focal angiographic views on the right were obtained to confirm the level of the stenosis so that a roadmap could be made. Heparin was given for anticoagulation and several doses were given to achieve therapeutic ACT. Next an 018 SV5 wire was advanced through a 125 4-Icelandic vert catheter. This was advanced down to the level of the distal SFA where injection was performed. Next, this wire was advanced across the area of stenosis into the tibioperoneal trunk. The vert catheter was then exchanged out and initially a 3 x 20 x 15 mm Eads balloon was advanced to the area of stenosis. This was inflated to nominal atmospheres for 90 seconds. This balloon was removed and an angiographic view was reviewed and this revealed that it was a suboptimal result. Therefore, a 4 x 40 mm Eads balloon was advanced to the area of stenosis. This was inflated to 4 atmospheres and held there for 120 seconds. This was then removed and follow-up angiographic views with nitroglycerin were obtained. This revealed a much improved angiographic result with brisk flow down to the distal arteries. A non flow-limiting dissection may have been present, however, on repeat angiographic views the flow was still brisk. Given the findings obtained a brisk flow achieved, the desire to not place a stent in this patient who has an active infection, the case was ended. The wire and sheath was removed. The Wojciech sheath was removed and exchanged out for a short 5-Icelandic sheath. There no complications. FINDINGS: 1. Aorta: This vessel has some ectasia but does not appear to be dilated in the sections evaluated, although as it goes higher, closure to the level the kidneys appears to be about in the range of 2.5 cm. 2. Left side: The common iliac artery is free of obstructive disease. The internal iliac artery is free of obstructive disease. Left common femoral artery: This vessel has minor luminal irregularities. The SFA on the left has evidence for mild disease. At the level of the distal SFA entering into the popliteal artery there is evidence of a focal stenosis estimated in the range of 30%. The vessel continues down the tibioperoneal trunk giving rise to an anterior tibial and peroneal artery. The posterior tibial artery is not seen and may be occluded. At the level of the foot, there is at least two-vessel runoff appreciated. The profunda has no evidence for obstructive disease 3. Right side: The common iliac artery has evidence of mild disease. The internal iliac artery has no evidence of obstructive disease. The external iliac artery has no evidence of obstructive disease. Right common femoral artery has no evidence of obstructive disease. The profunda artery has no evidence of obstructive disease. The superficial femoral artery continues down until the very distal portion at the level of the tibial plateau in the adductor canal where there is a very high-grade stenosis estimated 99%. Flow distal to this is somewhat slow. The popliteal artery has mild disease. The vessel continues down giving rise to the tibioperoneal trunk. On the images obtained it is difficult to appreciate the anterior tibial is open. The runoff at the level of the foot is difficult to appreciate given patient movement although it appears to be at least two vessel runoff. Interventional details as noted with a high-grade stenosis (99%) in the distal SFA. This was treated with balloon dilation first with a 3 then a 4 mm balloon. Follow-up angiographic views after balloon angioplasty reveal very brisk flow into the distal segments with residual stenosis estimated in the range of 20%. A non flow-limiting dissection may be present, however, flow in the vessel remained brisk HEMODYNAMICS: Heart rate 76, blood pressures in the range of 140 systolic over 80s. MEDICATIONS GIVEN IN THE CASE: 1. Heparin to achieve therapeutic anticoagulation. 2. 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 IMPRESSION: 1. Evidence for a high-grade distal SFA stenosis treated successfully with balloon angioplasty with much improved flow and no significant residual stenosis and brisk flow into the distal vessels of the foot. 2. No evidence for obstructive disease affecting the iliacs, common femoral arteries or profunda. MTDD
[2016-05-23 04:15] VITALS: BP 129/59; PULSE 89; RESP 18; O2SAT 95
[2016-05-23] MEDS: HYDROmorphone 0.5 mg/0.5 mL iSecure Syringe IVPUSH SCH ×4 (04:22→21:21)
[2016-05-23 05:25] LABS: BASOPHILS % (AUTO) 0.2 % (0-3); EOSINOPHILS % (AUTO) 1.9 % (0-5); MONOCYTES % (AUTO) 7.8 % (4-12); Mean Corpuscular Volume 86.5 fL (81-100); NEUTROPHILS % (AUTO) 76.3 % (40-74); Platelet Count 238 bil/L (150-400)
--- NOTE | 2016-05-23 06:06 | NUR ---
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 Left groin site with small hematoma distal to closure device, mild tenderness with palpation, no drainage noted, dressing CDI. Left pedal pulses palpable. Right medial thigh with large hematoma, softball size, hot and firm to the touch with moderate bruising. Hematoma outlined, direct pressure held and hematoma became softer and reduced some. Right upper thigh circumference measures 23 inches around, some edema noted in right upper thigh. Right pedal pulses audible with Doppler only. Right foot warm and pink, with redness throughout the toes. Blood pressures stable. notified and is aware. Hematoma stayed within the marked margins all night. Tele SR 80-90s per Living Advisor.
[2016-05-23 08:00] VITALS: PULSE 80
[2016-05-23 08:18] VITALS: BP 129/54; PULSE 89; RESP 16; O2SAT 94
[2016-05-23] MEDS: Sodium Chloride LOK Flush 10 mL Syringe IVFLUSH SCH ×2 (08:23→16:08)
[2016-05-23] MEDS: CYCLOSPORINE 0.05% AFFECT_EYE SCH ×2 (08:24→20:30)
--- NOTE | 2016-05-23 09:21 | PROG NOTE ---
[address] [address] PROGRESS NOTE PATIENT: NICOLE HARTMANN : 1930 MR#: [id number] ADMIT: 05/19/2016 JOB ID: [id number] DATE: 05/23/2016 CARDIOLOGY PROGRESS NOTE: CHIEF COMPLAINT: The patient came in with cellulitis and peripheral vascular disease. She status post invasive angiogram with balloon angioplasty of the distal SFA. EVENTS: The patient had some bruising on the inner thigh of the right leg. The intervention itself was performed down by the level of the knee. This could be related to minor trauma. However, it has improved, and her hematocrit has remained stable. She has received quite a bit of fluid as well post contrast. Vitals have all been stable. PHYSICAL EXAMINATION: Blood pressure 124/54, heart rate 89, sats are 94% on room air. General: In no acute distress. Speaking in full sentences, without apparent shortness of breath. Head and neck exam: Normocephalic, atraumatic. Neck: No JV distention. Heart exam: Regular rate and rhythm. Lungs: Clear anteriorly. Abdomen: Soft. Left groin site: Slight bruising. No bruits appreciated. Back: No CVA tenderness to palpation. On the right mid thigh there is a somewhat flat bruise/hematoma, which is only slightly tender. There are no bruits appreciated over this area. The right groin itself looks fine. The right foot erythema has decreased. The foot feels warm. I have dopplered the pulses and the waveforms sound good, upstroke by the monophasic or biphasic, both in the dorsalis pedis and posterior tibial. She denies significant pain. CURRENT MEDICATIONS: Include Dilaudid p.r.n., aspirin 162 mg, ampicillin/sulbactam. We held her blood pressure medicine this morning not knowing what her hemodynamic status would be. However, again, it looks good. LABORATORIES: Show a white count 16.7, H and H of 11.6 and 35.8, platelets of 238,000. This has trended down. Chemistry shows sodium 142, potassium 3.7, chloride and bicarb of 105 and 24, respectively. BUN and creatinine of 14 and 0.99. IMPRESSION: The patient is doing better after balloon angioplasty for a high-grade distal SFA stenosis on the right. She developed some bruising on the inner thigh of the right leg in an area where no intervention was performed. This could be related to some minor trauma. However, her hematocrit is stable, and that area is stable and, in fact, improving. PLAN: 1. I am going to add Plavix to her medications and continue with aspirin. 2. Will continue with antibiotics and keep an eye on her blood pressure. If it looks stable, we can put her back on her amlodipine. 3. I will discuss with the team in terms of how long we want to have her remain in the hospital. One thing she has are injuries related to the straps of the sandal that she was wearing and that would need to be remedied before she will go home. I will arrange for her to have a followup this week with myself, probably on Sunday. ISHMAEL
[2016-05-23] MEDS: Ampicillin-Sulbactam Inj 3,000 MG in 0.9% Sodium Chloride 100 ML IV SCH ×3 (10:57→21:21)
--- NOTE | 2016-05-23 13:15 | PCM.PNPOD ---
Subjective Date of Service: May 23, 2016 Date of Service: May 23, 2016 Visit Information: Reason for Visit Peripheral Vascular Disease Surgery/Surgery Date Post-Op Day # Date of Admission: Hospital Day # Subjective: 76-year-old female is seen for ischemic right foot and is 12 hours status post successful SYSTEMS ARCHITECT of the superficial femoral artery by Dr. Sheldon. Patient states she had almost immediate relief of left foot pain but overall feels well post procedure. Objective Exam Additional Information: Reexam shows a less hyperemic left foot, DP and PT pulses are trace to nonpalpable but capillary refill is brisk in the foot is quite warm. There are no new ischemic lesions, the hallux shows a dry periungual eschar without drainage. The superficial scrape on the left ankle does appear to be healing and exhibits less surrounding erythema. Skin of the right foot is intact, the foot is warm and without pre-ulcerative for ulcerative lesions. Assessment & Plan Impression My thanks to Dr. Sheldon for her successful intervention, the lesions of the left foot should now respond to local wound care and pressure offloading area. Problems: Plan I did separate and recommend patient continue to separate the first and second as well as fourth and fifth digits with soft padding to allow danielle- epithelialization of the devitalized interdigital soft tissues but otherwise patient will be seen for recheck as an outpatient in the podiatry clinic in one week. Robert Alanis DPM May 23, 2016 13:15
--- NOTE | 2016-05-23 15:57 | NUR ---
Right pedal pulse/Left groin hematoma Pt's right pedal pulse required doppler in order to detect at beginning of shift when assessing with NOC RN. Pt's pulse faintly palpable later in the shift, cap refill intact. Pt's foot much less red per NOC RN. Pt's left groin hematoma is within outline drawn on NOC shift, both NOC RN and Pt report that hematoma appears to be decreasing in size.
[2016-05-23 16:01] VITALS: BP 132/71; PULSE 89; RESP 20; O2SAT 90
--- NOTE | 2016-05-23 16:08 | PCM.DIMED ---
Chaya Montemayor DO 05/23/16 1608: Discharge Instructions Date of Service May 23, 2016 Dates of Hospitalization May 19, 2016 at 15:53 Discharge Diagnosis Discharge Diagnosis 1. Persistent leukocytosis 2. Right Foot Ischemia of unclear chronicity 3. Chronic Kidney Disease, Stage I 4. Essential Hypertension, chronic, quiescent Medication Instructions You were started on Plavix and Aspirin by your brass wind instruments tube bender here in the hospital. Please follow up with Dr. Sheldon in 1 week. Your prescriptions were sent electronically to your pharmacy. Please do not take your amlodipine for now, until you are seen by Dr. Sheldon. Dr. Colon of infectious disease does not think you have an infection in your foot and need antibiotics much more. Diet Heart Healthy Activity Limited until seen by PCP, Outpatient Physical Therapy, Other (Outpatient wound care) Call your provider Fever or Chills Patient Instructions Please follow up with your PCP in the next 1-2 weeks. Please follow up with Dr. Sheldon in 1 week. You will need to be set up for wound care, either at home or as an outpatient You will need physical therapy as well, either at home or as an outpatient. Your kids can take to these appointments. Andrew Williamson MD 05/26/16 1606: Discharge Instructions Attending's Statement The patient was seen and examined together with Dr. Montemayor on 05/23/2016 and I agree with the history, exam and plan as outlined in the note above. . Chaya Montemayor DO May 23, 2016 16:08 Andrew Williamson MD May 26, 2016 16:06
[2016-05-23] MEDS ORDERED: CLOP75TA28 PO (16:09)
--- NOTE | 2016-05-23 16:29 | CONS ---
[address] [address] CONSULTATION REPORT PATIENT: NICOLE HARTMANN : 1930 MR#: [id number] ADMIT: 05/19/2016 JOB ID: [id number] DATE OF SERVICE: 05/23/2016 INFECTIOUS DISEASE CONSULTATION: I thank Dr. Williamson for this consult. REASON FOR CONSULTATION: Ischemic right foot with vascular ulcers and possible infection. HISTORY OF PRESENT ILLNESS: The patient is an 86-year-old woman who has underlying CREST syndrome, Sjogren syndrome and hypertension. About a couple months ago, she developed the onset of right foot pain. Eventually this led her to evaluation on April 24, and at that time, she was found to have what appeared to be a right foot cellulitis. It was also thought she may or may not have an E. coli UTI. She was treated initially with Keflex and Bactrim but this failed to significantly improve what appeared to be the right foot cellulitis. She reported her foot was intensely erythematous and painful at all times, even at rest. She eventually was sent to Podiatry where her antibiotics were changed to Augmentin and Bactrim and that was continued for about a week but the erythema and tenderness continued unabated, and for that reason, she was eventually admitted to this facility on May 20. Subsequently her antibiotics were changed to Unasyn for what appeared to be refractory cellulitis. Because of the absence of pulses in the foot, it was thought that it could be ischemic and she yesterday underwent angiography with angioplasty of a very tight right SFA lesion. Following this balloon angioplasty and temple of flow, the patient reports that the pain she had been experiencing for the past couple of months in that right foot dramatically improved. She notes there are still areas of ulceration which have come up over the past month or two on that foot, but overall it is much improved. No associated fevers, chills, or sweats. No pulmonary or GI symptoms. No constitutional symptoms of infection. PAST MEDICAL HISTORY: 1. CREST. 2. Sjogren syndrome. 3. Hypertension. 4. History of ruptured appy. SOCIAL HISTORY: The patient originally is from the [facility] but she and her family moved when she was a teenager to [facility] to establish a [employer]. 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 The patient is a lifetime nonsmoker and nondrinker. She currently lives in a condominium by herself here in the [facility] area. The patient has no known allergies. FAMILY HISTORY: Negative for tuberculosis. REVIEW OF SYSTEMS: No significant headache, visual complaints, sore throat, cough, shortness of breath, chest pain, nausea, vomiting, diarrhea, or dysuria. The remainder of the review of systems is negative except for the right foot pain, erythema and skin breakdown. PHYSICAL EXAMINATION: Reveals a comfortable, alert and loquacious woman in no acute distress. Temperature 36.8, and she has been afebrile since her admission four days ago. Pulse 89, respiratory rate 16, blood pressure 129/54. She is saturating very well on room air. Examination of the head reveals no trauma or temporal wasting. Eyes without conjunctivitis or scleral icterus. Oral cavity negative. Neck without notable abnormality. Lungs clear. Cardiac tones without murmur. Regular rate and rhythm. Abdomen soft and nontender without organomegaly. She does have a [place] which she does not have at home and this should probably be removed as soon as possible. The left lower extremity is normal except for some superficial abrasions. There are good peripheral pulses and no evidence of infection or ischemia at this point. The right lower extremity is erythematous at the level of the ankle and the foot. There are ischemic arterial type ulcers present on the right great toe, the right lateral forefoot and scattered smaller ulcers elsewhere. None of these appear significantly infected. The foot itself was quite warm and a bit tender to deep palpation. A posterior tibial pulse can be appreciated but not a dorsal pedal. The patient is neurologically intact, able to give an excellent history. LABORATORY STUDIES: Include a white count which is basically 16,000 very consistently with relatively normal differential. Sed rate is 46. Creatinine 0.99. Procalcitonin 0.2 on two measurements. Urinalysis without white cells. Blood cultures negative. Urine culture negative. The angiography details were reviewed, and as noted, the main finding was a severe right distal SFA lesion that was balloon angioplastied and opened. The x-ray of the foot shows arthritis but no osteo or acute fracture. IMPRESSION: I suspect what it has been going on the past couple months is simply progressive ischemia of the right foot and ankle secondary to the obstructed vessel. The ulcerations on the right foot appear to be arterial/ischemic in nature and not appear to be infected. The patient reports that her foot pain has been dramatically improved since the temple of blood flow and I think the pain and resultant erythema are on the basis of ischemia rather than an infection. The patient's white count was noted to be about 16,000 a month ago and basically has not improved or changed with any of the antibiotics nor has she had any infection, all of which argue against a significant infection. RECOMMENDATION: 1. I will continue with the Unasyn or switch to ertapenem for as long as the patient is in the hospital which will likely only be until tomorrow. 2. Upon discharge, I do not see any compelling reason to continue any antibiotics but it would be worthwhile for the patient to be followed up fairly promptly by a primary care doctor to, among other things, re-evaluate her foot but also to check her white count on an ongoing basis to make sure she does not have a persistent leukocytosis, and if she does, to try and explain what is causing that such as a smoldering CLL or some similar process. 3. This case discussed in person with Dr. Williamson and his team. 4. Given the absence of any need for antibiotics or additional studies, I think ID will go ahead and sign off at this point. Thank you very much for this very intriguing consult.
--- NOTE | 2016-05-23 18:28 | PCM.PNMED ---
Subjective Date of Service May 23, 2016 Subjective The patient is an 86-year-old female who presented with a chief complaint of right foot cellulitis 05/19/16. Patient states that she first noticed a sore on her right great toe approximately one month ago. About one week later she was started on antibiotics including Augmentin and Bactrim. These were ineffective and she is on her second round. Pain, redness, swelling is increasing. She was asked to present to the emergency department by Dr. Alanis who feels she should be admitted. Patient admits right foot pain as well as new pain in her left great toe, but denies any other complaints. History of Sjogren syndrome and hypertension. Hospital Day 4 Today patient stated that her pain in both of her feet has improved, she continues to have pain in her right leg associated with her ischemic necrosis of right hallux and wound from her shoes on mid dorsal right foot. She stated that she is unable to bear weight on her right foot due to pain. Patient denies , fever, chills, nausea, vomiting, diarrhea, change in vision. ROS negative except as mentioned above. Exam Vital Signs Vital Sign - Last Date Time Temp Pulse Resp B/P Pulse Ox O2 Delivery O2 Flow Rate FiO2 05/23/16 04:15 36.5 89 18 129/59 95 Nasal Cannula 3.00 Intake and Output 05/22/16 05/22/16 05/23/16 Cumulative From/Thru 15:00 23:00 07:00 05/19/16 12:28 - 05/23/16 05:37 Intake Total 700 ml 4289 ml Output Total 950 ml 3000 ml Balance -250 ml 1289 ml Intake Oral 700 ml 2881 ml IV Total 1408 ml Output Urine Total 950 ml 3000 ml # Voids 2 # Bowel Movements 1 2 Exam General: Elderly female patient, without acute distress, unable to bear weight on right foot HEENT: mucus membranes moist, sclera anicteric Cardiac: RRR, no murmur, rub, or gallop Resp: good inspiratory effort, no wheezes, rales, or rhonchi Abdomen: Non tender, no masses palpated, normoactive bowel tones. Extremities: No clubbing or cyanosis. There is erythema on the right foot with ink markings proximal to the malleoli, the erythema regressed 3-4cm distal to the ink markings anteriorly and at the level of the ink medially. There is a dark callus present on the distal hallux with a 3mm area of maceration on the superior surface of the hallux. The 2nd toe is adducted with its distal end laying superior to the hallux, laying just over the area of maceration. There is a healing 0.5cm x 1.5 cm superficial wound on mid dorsal aspect of right foot , no purulent discharge, no sign of necrosis. Pedal pulses not palpable on either foot. The left foot is pink and warm. The right foot is cold. Not wearing SCDs. Neuro: Grossly neurologically intact. Lab and Diagnostics Result Diagram: 05/23/16 0500 05/23/16 0500 X-Rays, CTs and MRIs 05/19/16 Right foot xrays FINDINGS: Bones: Medial subluxation of the second proximal phalanx with corner fracture at the lateral base of the second proximal phalanx as before. No lytic lesions are identified. Arthritic changes also present at the tarsometatarsal joints, lateral greater than medial. Soft tissues: No tibiotalar joint effusion. Achilles tendon appears normal. IMPRESSION: 1. No significant interval change in the appearance of arthritis, second digit subluxation and corner fracture. Dictated by: Arley Roca M.D. on 05/19/2016 at 14:26 Assessment & Plan Wilfrid is an 86yo female with h/o Sjogrens syndrome and hypertension who presented to [facility] after outpatient treatment of cellulitis of the right foot with amoxicillin and bactrim failed. Her outpatient tafe teacher, Dr Alanis, has consulted with her care during this hospitalization. Hospital day #4. 1. Cellulitis, Right Foot, chronic - Difficult to treat due to ischemia, see #2 below. - WBC count continues to rise - Monitor CBC - Continue IV Unasyn 3 grams q 12 hours - Continue IV Dilaudid PRN for pain relief - Consult ID placed to assess antibiotic regimen and recommendations on outpatient follow up , we appreciate Bridgette expertise and recommendations on this case - PT consulted to assess and mobilize patient, we appreciate Bridgette expertise and recommendations on this case 2. 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 Chronic Kidney Disease, Stage I - Stable - Avoid nephrotoxic medications - Continue to monitor creatinine 4. Essential Hypertension, chronic, quiescent - Well controlled - Continue home Amlodipine Code status: Full Disposition: Likely discharge tomorrow, we will continue to due to elevated white blood count in presence of cellulitis of right foot and ischemic necrosis of right hallux. Pain Evaluation: Adequate Pain Control GI Prophylaxis: Not indicated VTE Prophylaxis: Sub-Q Heparin (Unfractionated), SCDs VTE Mechanical Devices: Intermittant Pneumatic CD Resuscitation Status: CPR: Attempt Resuscitation Attending Statement The patient was seen and examined together with Dr. Veronica on 05/23/2016 and I agree with the history, exam and plan as outlined in the note above. . JORDAN VERONICA DO May 23, 2016 07:00 Andrew Williamson MD May 26, 2016 16:07
[2016-05-23] MEDS: Heparin 5,000 Unit/mL Inj SUBQ SCH (21:20)
[2016-05-23 21:22] VITALS: BP 108/50; PULSE 107; RESP 20; O2SAT 93
[2016-05-24] MEDS: Sodium Chloride LOK Flush 10 mL Syringe IVFLUSH SCH ×2 (00:08→08:33)
[2016-05-24] MEDS: HYDROmorphone 0.5 mg/0.5 mL iSecure Syringe IVPUSH SCH ×2 (02:27→08:33)
[2016-05-24] MEDS: Ampicillin-Sulbactam Inj 3,000 MG in 0.9% Sodium Chloride 100 ML IV SCH ×2 (02:27→08:31)
--- NOTE | 2016-05-24 02:53 | NUR ---
Pt had a loose BM in brief, large amount of dark stool. Pt 2PA assist to clean and change brief with a boost higher in the bed. Addendum: 05/24/16 at 0254 by RASHAUN ESCOBAR RN GI
[2016-05-24 03:46] VITALS: BP 129/69; PULSE 80; RESP 20; O2SAT 94
[2016-05-24 05:22] LABS: BASOPHILS % (AUTO) 0.2 % (0-3); EOSINOPHILS % (AUTO) 3.6 % (0-5); MONOCYTES % (AUTO) 8.6 % (4-12); Mean Corpuscular Hemoglobin 27.8 pg (27.0-35.0); Mean Corpuscular Volume 86.2 fL (81-100); NEUTROPHILS % (AUTO) 67.3 % (40-74); Platelet Count 235 bil/L (150-400)
[2016-05-24 08:25] VITALS: BP 138/72; PULSE 87; RESP 12; O2SAT 95
[2016-05-24] MEDS: CYCLOSPORINE 0.05% AFFECT_EYE SCH (08:32)
[2016-05-24] MEDS: Heparin 5,000 Unit/mL Inj SUBQ SCH (08:33)
--- NOTE | 2016-05-24 10:01 | NUR ---
[facility] Signed 940AM
--- NOTE | 2016-05-24 10:22 | NUR ---
Wound Care Wound evaluation received, 05/23/16. Read Dr Alanis (podiatry) note, podiatry service managing this patients wounds. Evaluation not performed.
--- NOTE | 2016-05-24 11:11 | NUR ---
Social Work Note: Discharge Data& Assessment: Per pt is medically ready for discharge home via POV. Wilfrid Wallace is a 86 year old female admitted on 05/19/2016 for cellulitis right foot. Per pt is medically improved and ready to discharge home via POV. PT has cleared pt to go home with outpt PT. SW met with pt at bedside to confirm discharge planning and assess for any unmet needs. Pt confirms one of her children is on their way to come and transport her home. Pt denies any other needs. No other discharge needs identified. Plan: Per pt is medically ready for discharge home via POV. Pt confirms one of her children is on their way to come and transport her home. Pt denies any other needs. No other discharge needs identified. IRAM Merrill
--- NOTE | 2016-05-24 12:27 | NUR ---
Discharge Pt just discharged to home with family after being seen by PT this am, see PT note for more details. Pt given discharge educational materials on new plavix prescription, cellulitis, angioplasty/stent booklet, and groin site care post discharge. Pt's IV access D/C'd and intact X2. Pt instructed to f/u with cardiology and with PCP, appointments made for 05/25/16 at 1115 and 06/07/16 at 1325 respectively, numbers supplied. Pt verbalized understanding of all discharge educational materials. All belongings accompanied Pt at time of discharge.
--- NOTE | 2016-05-24 18:40 | PCM.DC.MED ---
Discharge Summary Date of Service May 24, 2016 Dates of Hospitalization Date of Hospital Admission May 19, 2016 at 15:53 Date of Discharge: May 24, 2016 Providers: Admitting Physician: Marcello Ireland MD Primary Care Physician: Dafne Avendano Attending Physician: Marcello Ireland MD Diagnosis at Time of Discharge Diagnosis at Time of Discharge 1. Persistent leukocytosis 2. Right Foot Ischemia of unclear chronicity 3. Chronic Kidney Disease, Stage I 4. Essential Hypertension, chronic, quiescent Consultations Infectious disease Wound Care Procedures XRay, CTs & MRIs 05/19/16 Right foot xrays FINDINGS: Bones: Medial subluxation of the second proximal phalanx with corner fracture at the lateral base of the second proximal phalanx as before. No lytic lesions are identified. Arthritic changes also present at the tarsometatarsal joints, lateral greater than medial. Soft tissues: No tibiotalar joint effusion. Achilles tendon appears normal. IMPRESSION: 1. No significant interval change in the appearance of arthritis, second digit subluxation and corner fracture. Dictated by: Arley Roca M.D. on 05/19/2016 at 14:26 Brief History Wilfrid is an 86-year-old female who presents with a chief complaint of right foot cellulitis. Patient states that she first noticed a sore on her right great toe approximately one month ago. About one week later she was started on antibiotics including Augmentin and Bactrim. These were ineffective and she is on her second round. Pain, redness, swelling is increasing. She was asked to present to the emergency department by Dr. Alanis who feels she should be admitted. Patient admits right foot pain as well as new pain in her left great toe, but denies any other complaints. History of Sjogren syndrome and hypertension. Hospital Course Wilfrid is an 86yo female with h/o Sjogrens syndrome and hypertension who presented to [facility] after outpatient treatment of cellulitis of the right foot with amoxicillin and bactrim failed. Her outpatient melt house drag operator, Dr Alanis, has consulted with her care during this hospitalization. Hospital day #4. 1. Cellulitis, Right Foot, chronic - Difficult to treat due to ischemia, see #2 below. - WBC count continues to rise - Monitor CBC - Continue IV Unasyn 3 grams q 12 hours - Continue IV Dilaudid PRN for pain relief - Consult ID placed to assess antibiotic regimen and recommendations on outpatient follow up , we appreciate Bridgette expertise and recommendations on this case - PT consulted to assess and mobilize patient, we appreciate Bridgette expertise and recommendations on this case 2. Right Foot Ischemia of unclear chronicity - Ischemic necrosis of the right hallux present with pressure from the subluxed 2nd toe creating an area of maceration - Revascularization procedure by Interventional Cardiology 05/22/16 - Wound Care consulted we appreciate Bridgette expertise and recommendations on this case 3. Chronic Kidney Disease, Stage I - Stable - Avoid nephrotoxic medications - Continue to monitor creatinine 4. Essential Hypertension, chronic, quiescent - Well controlled - Continue home Amlodipine Code status: Full Disposition: Likely discharge tomorrow, we will continue to due to elevated white blood count in presence of cellulitis of right foot and ischemic necrosis of right hallux. Exam Vital Signs (Last) Date Time Temp Pulse Resp B/P Pulse Ox O2 Delivery O2 Flow Rate FiO2 05/24/16 08:25 36.7 87 12 138/72 95 Room Air 05/23/16 04:15 3.00 Exam General: Elderly female patient, without acute distress, unable to bear weight on right foot HEENT: mucus membranes moist, sclera anicteric Cardiac: RRR, no murmur, rub, or gallop Resp: good inspiratory effort, no wheezes, rales, or rhonchi Abdomen: Non tender, no masses palpated, normoactive bowel tones. Extremities: No clubbing or cyanosis. There is erythema on the right foot with ink markings proximal to the malleoli, the erythema regressed 3-4cm distal to the ink markings anteriorly and at the level of the ink medially. There is a dark callus present on the distal hallux with a 3mm area of maceration on the superior surface of the hallux. The 2nd toe is adducted with its distal end laying superior to the hallux, laying just over the area of maceration. There is a healing 0.5cm x 1.5 cm superficial wound on mid dorsal aspect of right foot , no purulent discharge, no sign of necrosis. Pedal pulses not palpable on either foot. The left foot is pink and warm. The right foot is cold. Not wearing SCDs. Neuro: Grossly neurologically intact. Test 05/20/16 00:00 05/20/16 05:57 05/21/16 06:58 05/22/16 10:02 Urine Color Straw (YELLOW) Urine Appearance Hazy (CLEAR,HAZY) Urine pH 6.0 (5.0-8.0) Urine Specific [place] 1.015 (1.003-1.035) Urine Protein Negativemg/dL (NEG,TRACE) Urine Glucose (UA) Negativemg/dL (NEGATIVE) Urine Ketones Negativemg/dL (NEGATIVE) Urine Occult Blood Negative (NEGATIVE) Urine Nitrite Negative (NEGATIVE) Urine Bilirubin Negative (NEGATIVE) Urine Urobilinogen Normalmg/dL (NORMAL) Urine Leukocyte Esterase Small (NEGATIVE) Urine RBC 0-2/hpf (0-2) Urine WBC 0-5/hpf (0-5) Urine Epithelial Cells Occasional/hpf (NONE-MOD) Urine Crystals None seen (NONE SEEN) Urine Bacteria Few/hpf (NONE-FEW) Urine Hyaline Casts None/lpf (NONE) Urine Granular Casts None seen (NONE SEEN) Urine Waxy Casts None seen (NONE SEEN) Urine Red Blood Cell Casts None seen (NONE SEEN) Urine White Blood Cell Casts None seen (NONE SEEN) Urine Mucus None seen (None Seen) Urine Trichomonas None seen (NONE SEEN) Urine Yeast None (NONE SEEN) Urinalysis Comment None Urine Culture Reflexed Indicated Hold Urine Received (Received) Erythrocyte Sedimentation Rate 46mm/hr (0-40) Uric Acid 5.5mg/dL (2.6-7.2) Rheumatoid Factor 16.7IU/mL (0.0-13.9) Anti-Nuclear Antibody Screen Positive (Negative) Total Bilirubin 0.4mg/dL (0.0-1.2) Aspartate Amino Transf (AST/SGOT) 25U/L (0-50) Alanine Aminotransferase (ALT/SGPT) 13U/L (0-32) Alkaline Phosphatase 97U/L (25-165) Total Protein 6.9g/dL (6.4-8.4) Albumin 3.8g/dL (3.4-5.0) Prothrombin Time 11.3sec (8.1-12.5) Prothromb Time International Ratio 1.05ratio Test 05/23/16 05:00 05/24/16 05:07 C-Reactive Protein 6.4mg/dL (0.0-0.5) Streptozyme 21.6IU/mL (0.0-200.0) White Blood Count 14.0th/mm3 (3.8-10.1) Red Blood Count 4.07mil/mm3 (3.90-5.20) Hemoglobin 11.3g/dL (12.0-15.6) Hematocrit 35.1% (35.0-46.0) Mean Corpuscular Volume 86.2fL (81-100) Mean Corpuscular Hemoglobin 27.8pg (27.0-35.0) Mean Corpuscular Hemoglobin Concent 32.2% (32.0-37.0) Red Cell Distribution Width 14.5% (12.3-15.4) Platelet Count 235bil/L (150-400) Neutrophils (%) (Auto) 67.3% (40-74) Lymphocytes (%) (Auto) 19.8% (14-46) Monocytes (%) (Auto) 8.6% (4-12) Eosinophils (%) (Auto) 3.6% (0-5) Basophils (%) (Auto) 0.2% (0-3) Sodium Level 144mEq/L (134-144) Potassium Level 3.4mEq/L (3.5-5.2) Chloride Level 108mEq/L (97-108) Carbon Dioxide Level 26mmol/L (18-29) Blood Urea Nitrogen 11mg/dL (8-27) Creatinine 0.87mg/dL (0.57-1.00) Estimat Glomerular Filtration Rate 88mL/min (>59) Glucose Level 98mg/dL (60-99) Lactic Acid Level 0.7mmol/L (0.4-2.0) Calcium Level 8.3mg/dL (8.5-10.1) Procalcitonin 0.14ng/mL (See Comment) Discharge Medications Discharge Medications Aspirin Chew (Aspirin Chew) 81 Mg Chew 81 MG PO DAILY (Reported) Clopidogrel (Clopidogrel) 75 Mg Tablet 75 MG PO DAILY Prescribed by: CHIDI WHITE DO Cyclosporine (Restasis) 1 Each Droperette 1 DROP BOTH_EYES BID (Reported) Fluocinolone 0.01% Cream (Fluocinolone 0.01% Cream) 60 Applic/15 Gm Cream 1 APPLIC TOPICAL BID (Reported) Multivits-Min/FA/Lycopene/Lut (Centrum Silver Tablet) 1 Each Tablet 1 EACH PO DAILY (Reported) Neomy Sulf/Bacitra/Polymyxin B (Triple Antibiotic Ointment) 1 Appl/0.9 Gm Packet 1 APPL TOP DAILY (Reported) apply to sore on foot/toe As needed Hydrocodone-Acetaminophen 5-325 mg (Hydrocodone-Acetaminophen 5-325 mg) 1 Each Tablet 1 TABLET PO Q6H PRN PRN For Pain (Reported) Additional med instructions You were started on Plavix and Aspirin by your director of maintenance here in the hospital. Please follow up with Dr. Sheldon in 1 week. Your prescriptions were sent electronically to your pharmacy. Please do not take your amlodipine for now, until you are seen by Dr. Sheldon. Dr. Colon of infectious disease does not think you have an infection in your foot and do not need antibiotics much more. Followup Plan Disposition: Discharge to Home Follow-up plan Follow up with PCP in one week Keep wounds clean and dry Discharge Diet: Heart Healthy Discharge Activity: Limited until seen by PCP, Outpatient Physical Therapy, Other (Outpatient wound care) Patient Instructions Please follow up with your PCP in the next 1-2 weeks. Please follow up with Dr. Sheldon in 1 week. You will need to be set up for wound care, either at home or as an outpatient You will need physical therapy as well, either at home or as an outpatient. Your kids can take to these appointments. Follow-up with PCP in: 1 week Time spent Greater than 30 minutes was spent in preparation of discharge with greater than 50% of that time dedicated to patient counseling and coordination of care. . Attending Statement The patient was seen and examined together with Dr. Veronica on 05/24/2012 and I agree with the history, exam and plan as outlined in the note above. . copies to: Dafne Avendano AARON J DO May 24, 2016 18:40 Andrew Williamson MD May 26, 2016 16:09
[2016-07-10] MEDS ORDERED: LACT1CAP65 PO (13:06)
== END 2016-05-24 12:30 | disposition home or self-care (01) | DRG 253 ==
LOC: SED 12:19 → MPC 15:53 → PCC 05-22 18:34
PROVIDERS: ADMIT Hospitalist; ATTEND Hospitalist
PROC: 047K3ZZ Dilation of Right Femoral Artery, Percutaneous Approach (ICD-10-PCS; principal; 2016-05-22)
PROC: B41D1ZZ Fluoroscopy of Aorta and Bilateral Lower Extremity Arteries using Low Osmolar Contrast (ICD-10-PCS; 2016-05-22)
DX: I70.235 Atherosclerosis of native arteries of right leg with ulceration of other part of foot (principal); L03.115 Cellulitis of right lower limb; I70.261 Atherosclerosis of native arteries of extremities with gangrene, right leg; N18.1 Chronic kidney disease, stage 1; I12.9 Hypertensive chronic kidney disease with stage 1 through stage 4 chronic kidney disease, or unspecified chronic kidney disease; M06.9 Rheumatoid arthritis, unspecified; M20.41 Other hammer toe(s) (acquired), right foot; M20.42 Other hammer toe(s) (acquired), left foot; I77.1 Stricture of artery; L97.519 Non-pressure chronic ulcer of other part of right foot with unspecified severity

== ENCOUNTER 2016-05-22 00:52 | Day surgery (SDC) | payer MEDICARE, OTHER ==
[~2016-05-22 00:52] MED LIST: AMLO5TAB2 PO; AMOX-366 PO; ASPI81TA3 PO; CYCL1DRO BOTH_EYES; FLUO15CR TOPICAL; HYDR-4003 PO; MULT-1073 PO; NEOM1PAC2 TOP; SULF1TAB34 PO
[2016-05-22] MEDS ORDERED: Sodium Bicarb 8.4% 150 mEq/1,000 mL D5W IV ONE ×2 (09:55)
[2016-05-22] MEDS ORDERED: Heparin 1,000 Unit/mL 10 mL Inj ONE (12:35)
[2016-05-22] MEDS ORDERED: Heparin 5,000 Units/500 mL NS Premix IV ONE ×2 (12:35→14:02)
[2016-05-22] MEDS ORDERED: fentaNYL-PF 50 mCg/mL 2 mL Inj ONE (13:23)
[2016-05-22] MEDS ORDERED: Nitroglycerin 50,000 mcg/250 mL D5W Premix IV ONE (14:20)
[2016-05-22] MEDS ORDERED: Heparin 1,000 Units/500 mL NS Premix IV ONE (14:40)
[2016-05-23] MEDS ORDERED: [UNRECOGNIZED DRUG - OTHER] BOTH_EYES SCH (08:30)
[2016-05-23] MEDS ORDERED: CLOP75TA28 PO (16:09)
[2016-07-10] MEDS ORDERED: LACT1CAP65 PO (13:06)
== END 2016-05-22 23:59 | disposition home or self-care (01) ==
LOC: SOUO 00:52 → EDSTATUS 12:30 → SOUO 23:59
PROVIDERS: ATTEND Internal Medicine
DX: I73.9 Peripheral vascular disease, unspecified (principal)

== ENCOUNTER 2016-06-10 13:19 | Inpatient (IN) | payer MEDICARE, OTHER ==
[~2016-06-10] VITALS: Ht 152.4 cm; Wt 63.8 kg
[~2016-06-10 13:19] MED LIST changes: -AMLO5TAB2 PO; -AMOX-366 PO; +CLOP75TA28 PO; -SULF1TAB34 PO
[2016-06-10 13:22] VITALS: BP 132/77; PULSE 119; RESP 20; O2SAT 97
[2016-06-10] MEDS ORDERED: 0.9% Sodium Chloride 1,000 ML IV ONE (13:31)
--- NOTE | 2016-06-10 13:31 | ED.REPORT ---
HPI-Abd Pain F 40 and Over Date of Service Jun 10, 2016 ED Provider: Christopher Payne MD Pt is an 86 year old female with a hx of rheumatoid arthritis, sjogren's disease presenting to the ED complaining of diarrhea onset 3 weeks ago. Associated symptoms include stool with mucous and fatigue. Denies bloody diarrhea, vomiting, abd pain, cough, chest pain. Pt finished antibiotics for right foot cellulitis on 05/24 when she was discharged. Pt recently had a high white blood count when she was discharged. Nursing Notes Stated Complaint: DIARRHEA Chief Complaint: Male Abdominal Pain Nursing Notes Reviewed: Yes Allergies: Coded Allergies: No Known Allergies (Unverified , 05/19/16) Scheduled Aspirin Chew (Aspirin Chew) 81 Mg Chew 81 MG PO DAILY Ciprofloxacin (Ciprofloxacin) 500 Mg Tablet 500 MG PO BID Clopidogrel (Clopidogrel) 75 Mg Tablet 75 MG PO DAILY Cyclosporine (Restasis) 1 Each Droperette 1 DROP BOTH_EYES BID Fluocinolone 0.01% Cream (Fluocinolone 0.01% Cream) 60 Applic/15 Gm Cream 1 APPLIC TOPICAL BID Metronidazole (Flagyl) 500 Mg Tablet 500 MG PO Q8H Multivits-Min/FA/Lycopene/Lut (Centrum Silver Tablet) 1 Each Tablet 1 EACH PO DAILY Neomy Sulf/Bacitra/Polymyxin B (Triple Antibiotic Ointment) 1 Appl/0.9 Gm Packet 1 APPL TOP DAILY apply to sore on foot/toe Scheduled PRN Hydrocodone-Acetaminophen 5-325 mg (Hydrocodone-Acetaminophen 5-325 mg) 1 Each Tablet 1 TABLET PO Q6H PRN PRN For Pain General Time Seen by MD: 13:27 Chief Complaint Diarrhea severe Hx Obtained From: Patient, Spouse Arrived By: Walk-in Sudden in Onset?: Yes Onset Occurred: 5 - 8 hours ago Symptom Duration: Since onset Progression since Onset: Constant Location: : Diffuse Quality: Painful Severity: Current: Moderate Severity: Maximum: Severe Recent Healthcare: Recent doctor visit, Recent hospitalization Similar Sx Previous: No Past Medical History Past Medical History Sjgren syndrome RA Ulcer on upper back Reports: Hypertension Past Surgical History denies Smoking History Unknown if Ever Smoker Ambulatory Status Independent Review of Systems Respiratory: Denies: Non-productive cough Cardiovascular: Denies: Chest pain GI: Reports: Diarrhea, Denies: Abdominal pain, Nausea, Vomiting Complete sys rev & neg: except as marked. Physical Exam Vital Signs Vital Signs (First) Date Time Temp Pulse Resp B/P Pulse Ox O2 Delivery O2 Flow Rate FiO2 06/10/16 13:22 36.8 119 20 132/77 97 Room Air 06/10/16 16:50 1 Initial VS: Reviewed Head / Eyes: Atraumatic, Normocephalic, PERRL ENT: Mucous membranes moist, Conjunctiva normal, No scleral icterus Neck: Supple, Non-tender, Full range of motion Skin: Warm, Dry, No cyanosis Neurologic: Alert, Oriented, Nonfocal Psychiatric: Mood/affect normal, Behavior normal, Normal thought content General/Constitutional: Awake, Alert, No acute distress Respiratory / Chest: No respiratory distress Non labored breathing. Abdomen: No guarding, No rebound Tenderness/Guarding/Rebound: Positive: Tender diffuse Lower Extremity / Pelvis / MS: Atraumatic, Neurologic intact, Vascular intact Right great toe with chronic ischemic changes. No surrounding erythema. Interpretation & Diagnostics Lab Results Interpretation Result Diagram: 06/10/16 1400 06/10/16 1400 Test 06/10/16 14:00 06/10/16 16:45 White Blood Count 18.8th/mm3 (3.8-10.1) Red Blood Count 4.71mil/mm3 (3.90-5.20) Hemoglobin 13.0g/dL (12.0-15.6) Hematocrit 39.9% (35.0-46.0) Mean Corpuscular Volume 84.7fL (81-100) Mean Corpuscular Hemoglobin 27.6pg (27.0-35.0) Mean Corpuscular Hemoglobin Concent 32.6% (32.0-37.0) Red Cell Distribution Width 15.2% (12.3-15.4) Platelet Count 326bil/L (150-400) Neutrophils (%) (Auto) 75.6% (40-74) Lymphocytes (%) (Auto) 12.7% (14-46) Monocytes (%) (Auto) 8.5% (4-12) Eosinophils (%) (Auto) 2.1% (0-5) Basophils (%) (Auto) 0.3% (0-3) Sodium Level 136mEq/L (134-144) Potassium Level 4.8mEq/L (3.5-5.2) Chloride Level 98mEq/L (97-108) Carbon Dioxide Level 22mmol/L (18-29) Blood Urea Nitrogen 16mg/dL (8-27) Creatinine 1.11mg/dL (0.57-1.00) Estimat Glomerular Filtration Rate 67mL/min (>59) Glucose Level 113mg/dL (60-99) Lactic Acid Level 1.3mmol/L (0.4-2.0) Calcium Level 9.1mg/dL (8.5-10.1) Magnesium Level 2.2mg/dL (1.6-2.6) Total Bilirubin 0.4mg/dL (0.0-1.2) Aspartate Amino Transf (AST/SGOT) 28U/L (0-50) Alanine Aminotransferase (ALT/SGPT) 11U/L (0-32) Alkaline Phosphatase 93U/L (25-165) Total Protein 6.9g/dL (6.4-8.4) Albumin 3.4g/dL (3.4-5.0) Lipase 35U/L (13-60) Urine Color Yellow (YELLOW) Urine Appearance Clear (CLEAR,HAZY) Urine pH 5.5 (5.0-8.0) Urine Specific [place] 1.020 (1.003-1.035) Urine Protein Negativemg/dL (NEG,TRACE) Urine Glucose (UA) Negativemg/dL (NEGATIVE) Urine Ketones Tracemg/dL (NEGATIVE) Urine Occult Blood Negative (NEGATIVE) Urine Nitrite Negative (NEGATIVE) Urine Bilirubin Negative (NEGATIVE) Urine Urobilinogen Normalmg/dL (NORMAL) Urine Leukocyte Esterase Negative (NEGATIVE) Urine RBC 0-2/hpf (0-2) Urine WBC 0-5/hpf (0-5) Urine Epithelial Cells Occasional/hpf (NONE-MOD) Urine Crystals None seen (NONE SEEN) Urine Bacteria None/hpf (NONE-FEW) Urine Hyaline Casts None/lpf (NONE) Urine Granular Casts None seen (NONE SEEN) Urine Waxy Casts None seen (NONE SEEN) Urine Red Blood Cell Casts None seen (NONE SEEN) Urine White Blood Cell Casts None seen (NONE SEEN) Urine Mucus None seen (None Seen) Urine Trichomonas None seen (NONE SEEN) Urine Yeast None (NONE SEEN) Urinalysis Comment None Urine Culture Reflexed Not indicated ECG Interpretation ECG Interpretation: Tachcardia with a rate of 106. No ST elevations. Q waves in V1-V3. No previous for comparison. Time: 13:47 Interpreted by: ED physician Normal ECG Interpretation: Normal sinus rhythm CT Abd / Pelvis Interpretation IMPRESSION: 1. Sigmoid diverticulosis. There is mild sigmoid colon thickening suspicious for early diverticulitis. 2. Suspect small gallstones. 3. Duplicated left renal collecting system. 4. Calcified granulomas in lung bases. Dictated by: Brian Somers M.D. on 06/10/2016 at 16:28 Study type: Abdominal CT IV contrast, Abdom CT oral contrast Interpretation / Wet Read by: Interpret - Radiologist Re-Eval/Medical Decision Med Decision/Clinical Course 86-year-old female history of rheumatoid arthritis, Sjogren's disease, as admission for right foot cellulitis and ischemia status post revascularization presenting with diarrhea 3 weeks and weakness times several days. Also complaining of diffuse abdominal pain. Tachycardic to 120s on arrival. Blood pressure stable. White blood cell count 18,000, it is chronically elevated though trending up the last 2 weeks. Slight acute kidney injury currently 1.[address] abdomen and pelvis with oral contrast shows possible early diverticulitis. Discussed with patient and she is not comfortable going home. Her heart rate is coming down to the mid 90s. She was given 1 dose of Cipro and Flagyl orally as she initially wanted to go home. She then changed her mind and will be admitted. Will be admitted for diverticulitis, leukocytosis, acute kidney injury. She is DNR/DNI per patient/family. Re-Evaluation/Progress #1: Time of Eval: 16:51 Patient Status: Condition improved Re-Evaluation/Progress Note: Pt feels much improved. Diarrhea is resolved but pt feels fatigued. Discussed CT results. Discussed plan for departure. Pt understands and agrees. Re-Evaluation/Progress #2: Time of Eval: 17:14 Patient Status: Condition improved Re-Evaluation/Progress Note: The family requests that the pt be admitted. Consultation : Referral / Consult Name: Roberth Ogden MD Consulted With: Hospitalist Call Returned at: 17:42 Qa Architect: Will see patient, Agrees with plan, Accepts admit Counseled Regarding: Diagnosis, Lab results, Need for follow-up, When/why to return to ED Discharge & Departure Primary Impression: Acute diverticulitis Additional Impression: Leukocytosis Disposition: ADMITTED TO HOSPITAL Discharge Condition All VS Reviewed: Yes Condition: Improved Patient Instructions: Diverticulitis (ED) Additional Instructions: Your CT scan shows signs of an early diverticulitis, which is a type of intestinal infection. Drink plenty of fluids and follow up with your primary care doctor on Sunday. If you have new or worsening symptoms return to the ER. Take Cipro/Flagyl for 14 days. Eat a bland diet like soups or yogurt is fine. Referrals: Dafne Avendano (PCP) Kris Attestation Portions of this note were transcribed by Alyse. I, Dr. Payne personally performed the history, physical exam and medical decision-making; I reviewed and confirmed the accuracy of the information in the transcribed note. Signed by: Kris Suarez, 06/10/2016 and 1701. copies to: Dafne Avendano Ben M MD Jun 10, 2016 13:31 ALYSE MORENO Jun 10, 2016 14:12
[2016-06-10] MEDS ORDERED: Ondansetron 2 mg/mL 2 mL Inj IVPUSH PRN (13:35)
[2016-06-10 14:14] LABS: BASOPHILS % (AUTO) 0.3 % (0-3); EOSINOPHILS % (AUTO) 2.1 % (0-5); MONOCYTES % (AUTO) 8.5 % (4-12); Mean Corpuscular Hemoglobin 27.6 pg (27.0-35.0); Mean Corpuscular Volume 84.7 fL (81-100); NEUTROPHILS % (AUTO) 75.6 % (40-74); Platelet Count 326 bil/L (150-400)
[2016-06-10 14:38] LABS: Magnesium 2.2 mg/dL (1.6-2.6)
[2016-06-10] MEDS ORDERED: Iohexol 300 mg/mL 30 mL Inj PO ONE (14:45)
--- NOTE | 2016-06-10 16:39 | DRSVH ---
PROCEDURE: CT ABDOMEN AND PELVIS WITH CONTRAST ([id number]) INDICATIONS: 86 year-old woman with abdominal pain, elevated white count and diarrhea. TECHNIQUE: After the administration of oral and intravenous contrast, 5 mm thick sections acquired from the diap hragms to the symphysis. 5 mm thick coronal and sagittal reformats were performed. For radiation do se reduction, the following was used: automated exposure control, adjustment of mA and/or kV accordi ng to patient size. COMPARISON: None. FINDINGS: Image quality: Excellent. ABDOMEN: Lung bases: There are calcified granulomas at lung bases. There is left basilar atelectasis. Heart s ize is normal. Solid organs: Liver and spleen are normal in size and enhancement. Gallbladder may contain small ga llstones layering in dependent gallbladder lumen. Biliary system is non-dilated. Pancreas enhances normally. No adrenal nodules. Kidneys are normal in size and enhancement. Mild left atelectasis an d probable duplicated left renal collection system. Peritoneum and bowel: Stomach, small bowel, and colon loops are normal in caliber and wall thickness . There are numerous colonic diverticula in sigmoid colon. Sigmoid colon is mildly thickened suspici ous for early diverticulitis. No evidence for diverticular perforation or abscess. No free fluid or a ir. Nodes and vessels: No retroperitoneal or mesenteric adenopathy. Aorta and inferior vena cava are no rmal in caliber. Miscellaneous: There is a small fat containing ventral hernia at midline. PELVIS: Genitourinary: Bladder wall thickness is normal. Miscellaneous: No inguinal hernias or adenopathy. Bones: No suspicious bony lesions. No vertebral body compression fractures. IMPRESSION: 1. Sigmoid diverticulosis. There is mild sigmoid colon thickening suspicious for early diverticulitis . 2. Suspect small gallstones. 3. Duplicated left renal collecting system. 4. Calcified granulomas in lung bases. Dictated by: Brian Somers M.D. on 06/10/2016 at 16:28 Approved by: Brian Somers M.D. on 06/10/2016 at 16:38
[2016-06-10 16:50] VITALS: BP 115/54; PULSE 98; RESP 19; O2SAT 99
[2016-06-10] MEDS ORDERED: CIPR-198 PO (16:58)
[2016-06-10] MEDS ORDERED: METR500T PO (16:58)
[2016-06-10 17:25] LABS: APPEARANCE,URINE CLEAR (CLEAR,HAZY); COLOR,URINE YELLOW (YELLOW); OCCULT BLOOD,URINE NEGATIVE (NEGATIVE); PH,URINE 5.5 (5.0-8.0); UROBILINOGEN,URINE NORMAL (NORMAL)
[2016-06-10] MEDS ORDERED: Polyethylene Glycol (PEG) 17 Gm Powder PO PRN (17:45)
[2016-06-10] MEDS ORDERED: Alum-Mag Hydrox-Simeth 30 mL Suspension PO PRN (17:45)
[2016-06-10] MEDS ORDERED: levoFLOXacin Inj 500 MG in IV Premix 1 EACH IV ONE (18:00)
[2016-06-10 18:30] VITALS: BP 134/48; PULSE 98; RESP 18; O2SAT 95
--- NOTE | 2016-06-10 18:42 | PCM.HPMED ---
Subjective Date of Service Jun 10, 2016 Primary Provider: Admitting Physician: Primary Care Physician: Dafne Avendano Attending Physician: Admit Status: From the Emergency Department Chief Complaint: abdominal pain History of Present Illness: 86 year old female with a h/o rheumatoid arthritis, Sjgren's disease presented to the ED with c/o abdominal pain, diarrhea. Pt states that she had diarrhea since more than three weeks which is now worsening. Also associated with left lower quadrant abdominal pain, which is localized, 8/10 in severity. She denies any blood in stool, vomiting, chest pain, shortness of breath, cough. She was recently admitted with right foot cellulitis and discharged with antibiotics. Allergies Coded Allergies: No Known Allergies (Unverified , 05/19/16) PMH Social History Hx Alcohol Use: No Hx Substance Use: No Smoking Status: Unknown if Ever Smoker Exam Vital Signs Vital Sign - Last Date Time Temp Pulse Resp B/P Pulse Ox O2 Delivery O2 Flow Rate FiO2 06/10/16 16:50 36.9 98 19 115/54 99 Nasal Cannula 1 Exam General: Elderly female patient visiting with family upon my entering the room, mildly uncomfortable appearing though without acute distress. HEENT: mucus membranes moist, sclera anicteric Cardiac: RRR, no murmur, rub, or gallop Resp: good inspiratory effort, no wheezes, rales, or rhonchi Extremities: No clubbing or cyanosis. Lab and Diagnostics Result Diagram: 06/10/16 1400 06/10/16 1400 X-Rays, CTs and MRIs CT Abdomen / Pelvis: IMPRESSION: 1. Sigmoid diverticulosis. There is mild sigmoid colon thickening suspicious for early diverticulitis. 2. Suspect small gallstones. 3. Duplicated left renal collecting system. 4. Calcified granulomas in lung bases. Assessment & Plan 86yo female with h/o Sjogrens syndrome, RA and hypertension presented with abdominal pain, diarrhea found to have sigmoid diverticulitis. Sigmoid diverticulitis, acute present on admission - Will start on Ciprofloxacin and Metronidazole - Stool for culture, ova and parasites as well as C difficile Hypertension / CAD - on aspirin, plavix, amlodipine Chronic Kidney Disease, Stage I - Creatinine slightly up from previous admission - Avoid nephrotoxic medications - Will continue to monitor GI ppx: Pantoprazole DVT ppx: SCDs, Hepatin Antiemetics, analgesics prn as per protocol Status: To be admitted as inpatient due to complexity of medical condition that will require more than two days of hospital stay. Pain Evaluation: Adequate Pain Control GI Prophylaxis: Proton Pump Inhibitor VTE Prophylaxis: Sub-Q Heparin (Unfractionated) Resuscitation Status: CPR: Attempt Resuscitation Roberth Ogden MD Jun 10, 2016 18:03
--- NOTE | 2016-06-10 19:01 | NUR ---
Patient arrived from ER: Patient arrived from ER at 1845. Report was received from ER Nurse. Patient was oriented to her room and call light and tucked into her bed . Report was given to the [facility] shift nurse taking over her care.
[2016-06-10 19:09] VITALS: BP 146/70; PULSE 90; RESP 16; O2SAT 91
[2016-06-10 19:11] VITALS: PULSE 95
[2016-06-10] MEDS: 0.9% Sodium Chloride 1,000 ML IV SCH (19:44)
[2016-06-10 20:00] VITALS: PULSE 93
[2016-06-10] MEDS: FluocinoNIDE Acet 0.05% 30 Gm Cream TOPICAL SCH (20:30)
[2016-06-10] MEDS: Neomycin-Bacitracin-Polymyxin 15 Gm Ointment TOPICAL SCH (20:30)
[2016-06-10] MEDS: metroNIDAZOLE Inj 500 MG in IV Premix 1 EACH IV SCH (21:37)
--- NOTE | 2016-06-10 22:54 | NUR ---
ADMIT NOTE Pt arrived to [facility] Room 3016 approx 1845. Pt placed on remote telemetry by previous shift. Pt alert & oriented, has some forgetfulness. Pt had episode of bowel incontinence. Brief and bedding changed. Pt assisted to BS, had more BM, sample sent to lab. IV patent, IVF and IV abx administered. Pt denies pain at this time. Home medications reviewed w/ pt. Admitting/Swing notified of medications being updated, and to order as necessary. Pt is on Enteric precautions. Continue to monitor. Call light in reach. Bed alarm on. Intentional rounding. Addendum: 06/10/16 at 2325 by KATHY WALSH RN Admitting/Shawn MORELOS paged again for diet orders and pts home medications. No orders rec'd at this time. Addendum: 06/11/16 at 0126 by KATHY WALSH RN NOC hospitalist paged regarding ordering home medications and diet. Rec'd orders for home medications. Pt did bring some doses of Restasis, taken down to pharmacy and verified for hospital use. No diet orders at this time.
[2016-06-11 00:33] VITALS: BP 111/53; PULSE 87; RESP 14; O2SAT 95
[2016-06-11] MEDS: 0.9% Sodium Chloride 1,000 ML IV SCH ×3 (03:45→20:50)
[2016-06-11 04:36] VITALS: BP 139/66; PULSE 102; RESP 16; O2SAT 96
--- NOTE | 2016-06-11 05:10 | NUR ---
shift note Patient has had 3 loose stools since arrival to unit at 1845. Stools are mucous like. Stool sample sent per MD order. Patient states that she believes her diarrhea is improving. Patient ambulating SBA to the bedside commode. Patient denies pain. Call light is in reach.
[2016-06-11 06:27] LABS: Mean Corpuscular Hemoglobin 26.9 pg (27.0-35.0); Mean Corpuscular Volume 83.8 fL (81-100)
--- NOTE | 2016-06-11 07:35 | PCM.PNMED ---
Subjective Date of Service Jun 11, 2016 Subjective No overnight events. Vitals: no fevers, slightly tachi. Denies any n/v. 3 BM overnight No abd pain. Patient tested positive for C.diff. Patient had diarrhea for the past 3wks. Exam Vital Signs Vital Sign - Last Date Time Temp Pulse Resp B/P Pulse Ox O2 Delivery O2 Flow Rate FiO2 06/11/16 04:36 36.8 102 16 139/66 96 Room Air 06/10/16 16:50 1 Intake and Output 06/10/16 06/10/16 06/11/16 Cumulative From/Thru 15:00 23:00 07:00 06/10/16 13:22 - 06/11/16 05:23 Intake Total 1000 ml 100 ml 1100 ml Output Total 3 ml 3 ml Balance 1000 ml 97 ml 1097 ml Intake Oral 100 ml 100 ml IV Total 1000 ml 1000 ml Output Emesis 3 ml 3 ml # Voids 2 2 Exam Gen: Lying comfortably at 30degree head tilt HEENT: PERRLA, Anicteric sclerae, moist conjunctivae, and no lid lag. Neck: supple, no JVD Cardio: Regular rate and rhythm with no murmurs, rubs, or gallops appreciated Pulm: b/l air sound, no crackles, wheezes, or rhonchi. Normal respiratory effort with no use of accessory muscles. Abd: positive bowel tone. Soft, nontender, nondistended. hyperactive bowel sound Extremities: No clubbing, cyanosis, edema, or lymphadenopathy appreciated. blacken right big middle and 3rd toe, dry necrotic, no redness, +2 pedal pulses b/l Skin: Normal temperature, turgor, and texture; no rash, ulcers, or subcutaneous nodules appreciated. Neuro: Cranial nerves grossly intact. moving equally on all four extremities. Psyc: Normal mood and affect. AoX3 Lab and Diagnostics Result Diagram: 06/11/16 0605 06/11/16 0605 X-Rays, CTs and MRIs CT Abdomen / Pelvis: IMPRESSION: 1. Sigmoid diverticulosis. There is mild sigmoid colon thickening suspicious for early diverticulitis. 2. Suspect small gallstones. 3. Duplicated left renal collecting system. 4. Calcified granulomas in lung bases. Assessment & Plan Patient is a 86yof with MHx significant for Sjogrens syndrome, RA, and hypertension presented with abdominal pain, diarrhea found to have sigmoid diverticulitis. Sigmoid diverticulitis, acute present on admission - Diarrhea for 3wks, Sigmoid thickening on CT-abdomen, and WBC 18.8. - C. difficile positive - Responded well to Ciprofloxacin and Metronidazole C.diff, present on admission, active -- Cont abx as above Hypertension / CAD - on aspirin, plavix, amlodipine Chronic Kidney Disease, Stage I - Creatinine slightly up from previous admission - Avoid nephrotoxic medications - Will continue to monitor Peripheral vascular disease, present on admission, ongoing - Recent revascularized surgery on Right foot - Cont Plavix and aspirin GI ppx: Pantoprazole DVT ppx: SCDs, Hepatin Antiemetics, analgesics prn as per protocol Disposition: likely be inpatient for 2-3 days, till BM returns to normal. GI Prophylaxis: Proton Pump Inhibitor VTE Prophylaxis: Sub-Q Heparin (Unfractionated) Resuscitation Status: CPR: Attempt Resuscitation Attending Statement The patient was seen and examined together with Dr. Rashi Alvarez on 06/11/2016 and I agree with the history, exam and plan as outlined in the note above. Rashi Alvarez DO Jun 11, 2016 07:35 Byron Wilson MD Jun 20, 2016 10:39
[2016-06-11] MEDS: metroNIDAZOLE Inj 500 MG in IV Premix 1 EACH IV SCH ×2 (07:53→20:50)
[2016-06-11] MEDS: Neomycin-Bacitracin-Polymyxin 15 Gm Ointment TOPICAL SCH ×2 (07:55→20:30)
[2016-06-11] MEDS: FluocinoNIDE Acet 0.05% 30 Gm Cream TOPICAL SCH ×2 (07:56→20:30)
[2016-06-11 10:07] VITALS: PULSE 87
[2016-06-11] MEDS ORDERED: Vancomycin 100 mg/mL Oral Solution PO SCH (10:30)
--- NOTE | 2016-06-11 13:40 | NUR ---
Social Work Note: Initial Assessment Data& Assessment: EMR reviewed. SW met with pt at bedside to discuss discharge planning, SW role explained. Wilfrid Wallace is a 86 year old female admitted on 06/10/2016 for diverticulitis and leukocytosis. Pt is a re-admit and was discharged three weeks ago home with outpt PT. Pt explained she never made to to outpt PT due to struggling with diarrhea constantly since being discharged. Pt lives in [place] alone in a one story home and is independent at baseline. Pt does not require DME use, but does have a cane. Pt is ambulating SBA in her room at this time. Pt is not driving anymore and her adult children transport her to appointments. Pt is seeing Dafne Avendano MD for primary care in the community. Pt does not have LTC insurance or VA benefits. Pt does not have HH or SNF hx otherwise. Pt has DPOA paperwork completed, SW requested a copy when possible. Pt's adult children to transport her home when medically ready. Pt provided with SW phone number on pt whiteboard. Pt denies any other needs at this time. No other discharge needs identified at this time. SW to continue to follow if any needs arise. Plan: Anticipated discharge home via POV when medically ready. Pt denies any other needs at this time. No other discharge needs identified at this time. SW to continue to follow if any needs arise. IRAM Merrill Addendum: 06/11/16 at 1350 by JO RESENDIZ Amended: Links added. Addendum: 06/11/16 at 1616 by TEX CURTIS SS SW received a call from [facility] with [facility]. Je[facility] states they had received orders from pt's PCP for home health services. [facility] they were working on admitting pt yesterday and RN sent pt to ED. [facility] pt will not need new F2F and they are currently open with Pt for RN,PT, and OT. SW to follow up with pt tomorrow to confirm plan. SW will continue to follow. IRAM Fu
[2016-06-11 15:04] VITALS: BP 141/65; PULSE 84; RESP 16; O2SAT 94
[2016-06-11] MEDS ORDERED: Levofloxacin 250 mg/50 mL D5W IV SCH (18:00)
--- NOTE | 2016-06-11 18:04 | NUR ---
Bowel Movements: Patient has had 3 loose mucous brown bowel movements today. Her Stool sample came back positive for C Diff. Patient is on enteric precautions. Patient is receiving antibiotics for her C Diff. Patient has needed assistance cleaning up after each stool and is incontinent of bowel and bladder. Calmoseptine applied to her [place] area and bottom redness.
[2016-06-11 20:33] VITALS: BP 143/64; PULSE 93; RESP 18; O2SAT 96
--- NOTE | 2016-06-12 01:58 | NUR ---
BMs: Thus far this shift pt has been incontinent of mucous brown stool x2. Pt assisted with care after BMs and calmoseptine applied. Bed alarm on for pt safety; has not called for assistance.
[2016-06-12 05:48] VITALS: BP 144/71; PULSE 88; RESP 18; O2SAT 97
[2016-06-12 06:38] LABS: BASOPHILS % (AUTO) 0.2 % (0-3); EOSINOPHILS % (AUTO) 2.2 % (0-5); Mean Corpuscular Hemoglobin 27.3 pg (27.0-35.0); Mean Corpuscular Volume 83.4 fL (81-100); NEUTROPHILS % (AUTO) 71.3 % (40-74); Platelet Count 263 bil/L (150-400)
[2016-06-12] MEDS: Neomycin-Bacitracin-Polymyxin 15 Gm Ointment TOPICAL SCH ×2 (08:30→20:30)
--- NOTE | 2016-06-12 09:20 | NUR ---
PACO signed. IRAM Fu
[2016-06-12] MEDS: FluocinoNIDE Acet 0.05% 30 Gm Cream TOPICAL SCH ×2 (09:29→20:27)
--- NOTE | 2016-06-12 09:37 | PCM.PNMED ---
Subjective Date of Service Jun 12, 2016 Subjective Wilfrid continues to have diarrhea, she reports 3 watery bowel movements since she went to sleep last night. Exam Vital Signs Vital Sign - Last Date Time Temp Pulse Resp B/P Pulse Ox O2 Delivery O2 Flow Rate FiO2 06/12/16 05:48 36.7 88 18 144/71 97 Room Air 06/10/16 16:50 1 Intake and Output 06/11/16 06/11/16 06/12/16 Cumulative From/Thru 15:00 23:00 07:00 06/10/16 13:22 - 06/12/16 04:31 Intake Total 770 ml 701 ml 2571 ml Output Total 3 ml Balance 770 ml 701 ml 2568 ml Intake Oral 770 ml 870 ml IV Total 701 ml 1701 ml Output Emesis 3 ml # Voids 3 5 # Bowel Movements 3 3 Exam General: Resting comfortably in bed upon my entering the room. No acute distress. Cooperative. HEENT: Mucus membranes moist. Sclera anicteric Cardiac: RRR. No murmur, rub, or gallop Lungs: Good inspiratory effort without wheezes, rales, or rhonchi. No conversational dyspnea, tripoding, or gasping. Abdomen: Normoactive bowel tones. Soft, nondistended and nontender. No hepatosplenomegaly appreciated Extremities: No clubbing, cyanosis or edema bilaterally.The plantar and medial surface of the right halux has hyperkeratotic brown-black skin.The distal 2nd toes lay superior to the nailbed of the halux bilaterally. Capillary refill 2s. Posterior tibial and dorsalis pedis pulses are symmetrically palpable. Neuro: Awake, alert, and oriented. IVs and Medications Medications Reviewed: Medications were reviewed in detail Lab and Diagnostics Result Diagram: 06/12/16 0555 06/12/16 0555 X-Rays, CTs and MRIs CT Abdomen / Pelvis: IMPRESSION: 1. Sigmoid diverticulosis. There is mild sigmoid colon thickening suspicious for early diverticulitis. 2. Suspect small gallstones. 3. Duplicated left renal collecting system. 4. Calcified granulomas in lung bases. Assessment & Plan Wilfrid is a 86yo female with rheumatoid arthritis and right lower extremity cellulitis which was treated on 05/16/16 with antibiotics and revascularization of the leg. She began having diarrhea 3 weeks ago for which she has been admitted. She has been found to have possible mild sigmoid diverticulitis and PCR of stool is positive for C difficile. 1. Clostridium difficile colitis, present on admission - Positive PCR for C difficile and watery diarrhea - Vancomycin 125mg PO q6h - Leukocytosis, which is improving, may be attributed to her C difficile - Monitor stooling - Will be able to discharge when she no longer has watery diarrhea, or <3 loose stools per day 2.Hypertension, chronic and stable - Continue with home dosing of amlodipine 3. Chronic Kidney Disease, Stage I - Creatinine improved with IV fluids, suspect initial reduction of renal function was due to volume depletion - Avoid nephrotoxic medications - Continue to monitor 4. Possible mild sigmoid diverticulitis - CT abdomen suggestive of this diagnosis though #1 could also cause the inflammation - Leukocytosis may be due to this diagnosis of #1 above - Discontinuing levofloxacin at this time, will monitor carefully 5. Peripheral vascular disease, present on admission, ongoing - Recent revascularized surgery of the right lower extremity - Continue clopidogrel and aspirin Ondansetron PRN nausea Acetaminophen PRN pain Disposition: Anticipate discharge with oral vancomycin once her stooling has improved VTE Prophylaxis: Sub-Q Heparin (Unfractionated) Resuscitation Status: CPR: Attempt Resuscitation Time spent 30 minutes Attending Statement I have seen and evaluated patient at bedside in addition to directly supervised care provided by resident physician. I agree with above documentation. Kourtney Gee DO Jun 12, 2016 08:54 Mitchell Malcolm DO Jun 13, 2016 07:53
--- NOTE | 2016-06-12 11:43 | NUR ---
Social Work-continued d/c planning: Data:EMR Reviewed. Pt is on day 2 of hospitalization for diverticulitis per h&P. PT is several days out from discharge. Pt is positive for Cdiff. SW received a call from [facility] yesterday and was informed that they are currently open with pt for RN,OT, and PT. SW followed up with pt at bedside to discuss, SW role explained. Pt states that she is interested in having them again at discharge. Pt states her family will be providing transport home at discharge. SW will continue to follow. Assessment:Pt who would benefit from HH. Plan:Pt to discharge home when medically stable via POV. Pt is currently open with [facility] for RN,OT, and PT, access given. pt will need resume HH orders. SW will continue to follow. IRAM Fu
[2016-06-12] MEDS: 0.9% Sodium Chloride 1,000 ML IV SCH (11:57)
[2016-06-12 12:20] VITALS: BP 146/64; PULSE 84; RESP 18; O2SAT 96
--- NOTE | 2016-06-12 13:01 | NUR ---
Wound Care Received order for wound care evaluation to ulcer to back which was present on admission. Patient also with ischemic right great toe, right 5th toe and small area to right lateral 5th metatarsal head, present on admission. Patient reports having surgery in March for revascularization and reports toes improving. Patient with stable eschar to toes. Patient reports wound to back has been present for at least "a week or two". States she does not know cause, was scratching her back one day and noticed it. Patient asked her daughter to look at it who confirmed there was a wound present. Wound measures 1.5cm L x 2.1cm W covered with 100% yellow/brown eschar. Very minimal erythema to periwound and no drainage noted. Wound with no signs of infection. Wound cleaned with saline. Patient reports mild tenderness to touch. Applied vaseline and covered with Mepilex. Wound care to follow up in 24 to 48 hours. Nursing to change dressing as needed if soiled.
[2016-06-12] MEDS: Vancomycin 125 mg Oral Capsule PO SCH ×2 (15:30→20:24)
[2016-06-12 16:07] VITALS: BP 146/72; PULSE 82; RESP 18; O2SAT 96
[2016-06-12] MEDS: Heparin 5,000 Unit/mL Inj SUBQ SCH (20:26)
[2016-06-12 21:03] VITALS: BP 160/78; PULSE 110; RESP 18; O2SAT 97
[2016-06-13 02:24] VITALS: BP 146/74; PULSE 78; RESP 16; O2SAT 94
[2016-06-13] MEDS: Vancomycin 125 mg Oral Capsule PO SCH ×3 (02:26→14:37)
[2016-06-13] MEDS: 0.9% Sodium Chloride 1,000 ML IV SCH ×2 (02:27→17:15)
--- NOTE | 2016-06-13 03:24 | NUR ---
BMs, Sleep: Pt has been incontinent of one small BM tonight, loose. Prior shift received order for Melatonin at HS, as pt reported not sleeping well. Medication was given to pt, TV turned off, and pt has been able to sleep thus far tonight; falling asleep again easily after pt is awaken for care.
[2016-06-13 07:21] LABS: BASOPHILS % (AUTO) 0.3 % (0-3); EOSINOPHILS % (AUTO) 3.8 % (0-5); MONOCYTES % (AUTO) 9.3 % (4-12); Mean Corpuscular Hemoglobin 27.3 pg (27.0-35.0); NEUTROPHILS % (AUTO) 64.6 % (40-74); Platelet Count 262 bil/L (150-400)
[2016-06-13] MEDS ORDERED: NEOMY/BACITRA/POLYMYX OINT 1 PACKET/0.9 GM PACKET TOPICAL SCH (09:00)
[2016-06-13] MEDS: Heparin 5,000 Unit/mL Inj SUBQ SCH (09:15)
[2016-06-13] MEDS: FluocinoNIDE Acet 0.05% 30 Gm Cream TOPICAL SCH (09:17)
[2016-06-13] MEDS ORDERED: VANC125C3 PO (09:43)
--- NOTE | 2016-06-13 13:06 | PCM.DIMED ---
Kourtney Gee DO 06/13/16 0946: Discharge Instructions Date of Service Jun 13, 2016 Dates of Hospitalization Jun 10, 2016 at 17:48 Discharge Diagnosis Discharge Diagnosis Clostridium difficile colitis, present on admission Hypertension, chronic and stable Chronic Kidney Disease, Stage I and stable Peripheral vascular disease, present on admission, ongoing Medication Instructions You may resume your regular home medications with the addition of the following: Vancomycin 1 tablet by mouth 4 times daily. Make sure that you complete the entire course as there is a risk for relapse with this type of infection. Test Results Positive PCR for clostridium difficile Diet No restrictions Activity Home Health Phyical Therapy Call your provider Fever or Chills, Shortness of breath, Bleeding, Chest pain, Vomitting, Excessive diarrhea, Weakness (unilateral) Patient Instructions Make sure that you stay hydrated by drinking 8-10 glasses of water or other nonalcoholic liquids per day for the next 2 weeks. Follow-up plan Please call to schedule an appointment with your primary care provider, to be seen in 7-10 days. Make sure that you keep an appointment with Dr Alanis, your compliance testing analyst, to follow up on your foot. Please call his office to confirm your appointment with him. Follow-up Provider: Dafne Avendano Follow-up with PCP in: 1 week Mitchell Malcolm DO 06/13/16 1441: Discharge Instructions Attending's Statement Read and agree Kourtney Gee DO Jun 13, 2016 09:46 Mitchell Malcolm DO Jun 13, 2016 14:41
--- NOTE | 2016-06-13 13:17 | PCM.DC.MED ---
Discharge Summary Date of Service Jun 13, 2016 Dates of Hospitalization Date of Hospital Admission Jun 10, 2016 at 17:48 Date of Discharge: Jun 13, 2016 Providers: Admitting Physician: Roberth Ogden MD Primary Care Physician: Dafne Avendano Attending Physician: Roberth Ogden MD Diagnosis at Time of Discharge Diagnosis at Time of Discharge Clostridium difficile colitis, present on admission Hypertension, chronic and stable Chronic Kidney Disease, Stage I and stable Peripheral vascular disease, present on admission, ongoing Procedures XRay, CTs & MRIs CT Abdomen / Pelvis: IMPRESSION: 1. Sigmoid diverticulosis. There is mild sigmoid colon thickening suspicious for early diverticulitis. 2. Suspect small gallstones. 3. Duplicated left renal collecting system. 4. Calcified granulomas in lung bases. Other Diagnostics Positive stool PCR for clostridium difficile Brief History Per H&P by Dr Ogden: 86 year old female with a h/o rheumatoid arthritis, Sjgren's disease presented to the ED with c/o abdominal pain, diarrhea. Pt states that she had diarrhea since more than three weeks which is now worsening. Also associated with left lower quadrant abdominal pain, which is localized, 8/10 in severity. She denies any blood in stool, vomiting, chest pain, shortness of breath, cough. She was recently admitted with right foot cellulitis and discharged with antibiotics. Hospital Course The following were addressed during this hospitalization: Wilfrid is a 86yo female with rheumatoid arthritis and right lower extremity cellulitis which was treated on 05/16/16 with antibiotics and revascularization of the leg. She began having diarrhea 3 weeks ago for which she has been admitted. She has been found to have possible mild sigmoid diverticulitis and PCR of stool is positive for C difficile. 1. Clostridium difficile colitis, present on admission - Positive PCR for C difficile and watery diarrhea - Vancomycin 125mg PO q6h started after she received metronidazole IV for 24hours. - Prescription for Vancom[facility] for her to take to complete a 10 day course - Leukocytosis, which is improving, may be attributed to her C difficile - She had <3 loose stools per day - She had good oral intake during the last 48hours of her hospitalization 2. Hypertension, chronic and stable - Continued home dosing of amlodipine 3. Chronic Kidney Disease, Stage I - Creatinine improved with IV fluids, suspect initial reduction of renal function was due to volume depletion - Avoided nephrotoxic medications - monitored 4. Possible mild sigmoid diverticulitis - CT abdomen suggestive of this diagnosis though #1 could also cause the inflammation - Leukocytosis may be due to this diagnosis of #1 above - She did receive levofloxacin at admission which was discontinued as her symptoms may be attributed to #1 above 5. Peripheral vascular disease, present on admission, ongoing - Recent revascularized surgery of the right lower extremity - Continued clopidogrel and aspirin Ondansetron PRN nausea provided Acetaminophen PRN pain provided Exam Vital Signs (Last) Date Time Temp Pulse Resp B/P Pulse Ox O2 Delivery O2 Flow Rate FiO2 06/13/16 02:24 37.1 78 16 146/74 94 Room Air 06/10/16 16:50 1 Exam On the date of discharge: General: Resting comfortably in bed upon my entering the room. No acute distress. Cooperative. HEENT: Mucus membranes moist. Sclera anicteric Cardiac: RRR. No murmur, rub, or gallop Lungs: Good inspiratory effort without wheezes, rales, or rhonchi. No conversational dyspnea, tripoding, or gasping. Abdomen: Normoactive bowel tones. Soft, nondistended and nontender. No hepatosplenomegaly appreciated Extremities: No clubbing, cyanosis or edema bilaterally.The plantar and medial surface of the right halux has hyperkeratotic brown-black skin.The distal 2nd toes lay superior to the nailbed of the halux bilaterally. Capillary refill 2s. Posterior tibial and dorsalis pedis pulses are symmetrically palpable. Neuro: Awake, alert, and oriented. Test 06/10/16 14:00 06/10/16 16:45 06/13/16 06:50 Lactic Acid Level 1.3mmol/L (0.4-2.0) Magnesium Level 2.2mg/dL (1.6-2.6) Total Bilirubin 0.4mg/dL (0.0-1.2) Aspartate Amino Transf (AST/SGOT) 28U/L (0-50) Alanine Aminotransferase (ALT/SGPT) 11U/L (0-32) Alkaline Phosphatase 93U/L (25-165) Total Protein 6.9g/dL (6.4-8.4) Albumin 3.3g/dL (3.4-5.0) Lipase 35U/L (13-60) Urine Color Yellow (YELLOW) Urine Appearance Clear (CLEAR,HAZY) Urine pH 5.5 (5.0-8.0) Urine Specific Nixa 1.020 (1.003-1.035) Urine Protein Negativemg/dL (NEG,TRACE) Urine Glucose (UA) Negativemg/dL (NEGATIVE) Urine Ketones Tracemg/dL (NEGATIVE) Urine Occult Blood Negative (NEGATIVE) Urine Nitrite Negative (NEGATIVE) Urine Bilirubin Negative (NEGATIVE) Urine Urobilinogen Normalmg/dL (NORMAL) Urine Leukocyte Esterase Negative (NEGATIVE) Urine RBC 0-2/hpf (0-2) Urine WBC 0-5/hpf (0-5) Urine Epithelial Cells Occasional/hpf (NONE-MOD) Urine Crystals None seen (NONE SEEN) Urine Bacteria None/hpf (NONE-FEW) Urine Hyaline Casts None/lpf (NONE) Urine Granular Casts None seen (NONE SEEN) Urine Waxy Casts None seen (NONE SEEN) Urine Red Blood Cell Casts None seen (NONE SEEN) Urine White Blood Cell Casts None seen (NONE SEEN) Urine Mucus None seen (None Seen) Urine Trichomonas None seen (NONE SEEN) Urine Yeast None (NONE SEEN) Urinalysis Comment None Urine Culture Reflexed Not indicated White Blood Count 11.0th/mm3 (3.8-10.1) Red Blood Count 4.18mil/mm3 (3.90-5.20) Hemoglobin 11.4g/dL (12.0-15.6) Hematocrit 35.1% (35.0-46.0) Mean Corpuscular Volume 84.0fL (81-100) Mean Corpuscular Hemoglobin 27.3pg (27.0-35.0) Mean Corpuscular Hemoglobin Concent 32.5% (32.0-37.0) Red Cell Distribution Width 14.9% (12.3-15.4) Platelet Count 262bil/L (150-400) Neutrophils (%) (Auto) 64.6% (40-74) Lymphocytes (%) (Auto) 21.0% (14-46) Monocytes (%) (Auto) 9.3% (4-12) Eosinophils (%) (Auto) 3.8% (0-5) Basophils (%) (Auto) 0.3% (0-3) Sodium Level 141mEq/L (134-144) Potassium Level 3.9mEq/L (3.5-5.2) Chloride Level 106mEq/L (97-108) Carbon Dioxide Level 21mmol/L (18-29) Blood Urea Nitrogen 7mg/dL (8-27) Creatinine 0.86mg/dL (0.57-1.00) Estimat Glomerular Filtration Rate 89mL/min (>59) Glucose Level 93mg/dL (60-99) Calcium Level 8.2mg/dL (8.5-10.1) Prealbumin 10mg/dL (20-40) Discharge Medications Discharge Medications Aspirin Chew (Aspirin Chew) 81 Mg Chew 81 MG PO DAILY (Reported) Clopidogrel (Clopidogrel) 75 Mg Tablet 75 MG PO DAILY Prescribed by: CHIDI WHITE DO Cyclosporine (Restasis) 1 Each Droperette 1 DROP BOTH_EYES BID (Reported) Multivits-Min/FA/Lycopene/Lut (Centrum Silver Tablet) 1 Each Tablet 1 EACH PO DAILY (Reported) Vancomycin (Vancomycin) 125 Mg Capsule 125 MG PO Q6 Prescribed by: GUIDO CORMIER DO As needed Hydrocodone-Acetaminophen 5-325 mg (Hydrocodone-Acetaminophen 5-325 mg) 1 Each Tablet 1 TABLET PO Q6H PRN PRN For Pain (Reported) Additional med instructions You may resume your regular home medications with the addition of the following: Vancomycin 1 tablet by mouth 4 times daily. Make sure that you complete the entire course as there is a risk for relapse with this type of infection. Followup Plan Disposition: Home with home health. She reports that at least one of her children will be with her at all times for the next 2-3 days. Follow-up plan Please call to schedule an appointment with your primary care provider, to be seen in 7-10 days. Make sure that you keep an appointment with Dr Alanis, your senior storage administrator, to follow up on your foot. Please call his office to confirm your appointment with him. Discharge Diet: No restrictions Discharge Activity: No restrictions Patient Instructions Make sure that you stay hydrated by drinking 8-10 glasses of water or other nonalcoholic liquids per day for the next 2 weeks. Follow-up Provider: Dafne Avendano Follow-up with PCP in: 1 week Time spent 40 minutes Attending Statement I have seen and evaluated patient at bedside in addition to directly supervising care provided by resident physician. I agree with above documentation. copies to: Robert Alanis DPM; Dafne Avendano Rachel M DO Jun 13, 2016 13:17 Mitchell Malcolm DO Jun 13, 2016 14:44
[2016-06-13 13:39] VITALS: BP 135/71; PULSE 80; RESP 18; O2SAT 96
--- NOTE | 2016-06-13 16:14 | NUR ---
Social Work-discharge: Data:EMR Reviewed. Pt is on day 3 of hospitalization for Cdiff per H&P. Pt is medically stable for discharge. MODE received a call from stating pt's son Frank [phone] has questions and concerns about discharge. MODE called Frank and discussed. Frank is wondering if pt can go to SNF. MODE explained pt would have to have skillable need to go. MODE explained HH services are set up with [facility] for RN,PT, and OT. SW also explained about appeal and son will discuss with family. SW received a call back stating they do want to appeal. MODE updated UR RN who will call son. UR RN states she spoke with son, son had spoken with MD and is now agreeable for pt to discharge. MODE called Kash Thuan Vasquez with [facility] and informed him of discharge with resume HH orders. Son to provide transport home. All updated and agreeable to plan. Assessment:Pt who would benefit from HH. Plan:Pt to discharge home today via POV. Resume HH orders provided to [facility] for RN,OT, and PT. All updated and agreeable to plan. IRAM Fu
--- NOTE | 2016-06-13 18:26 | NUR ---
Discharge Patient departed unit via wheelchair, accompanied by staff and family. Patient alert and oriented x 3. Denied chest discomfort, shortness of breath, abdominal discomfort, nausea or pain. Patient reports she has not had diarrhea since last night, but did have one formed bowel movement this afternoon. Family spoke to staff with concerns that patient might not be "well enough" to go home. funeral home general manager, hospitalist, nursing and risk management all spoke with family. Family was told about options for medicare. Ultimately, family and patient decided for patient to go home. Discharge instructions/medications reviewed with patient/family prior to discharge. All questions addressed. Patient belongings, discharge instructions and home medications returned to patient. Prescription electronically sent to [facility].
[2016-07-10] MEDS ORDERED: LACT1CAP65 PO (13:06)
== END 2016-06-13 18:29 | disposition home or self-care (01) | DRG 372 ==
LOC: SED 13:19 → MPC 17:48
PROVIDERS: ADMIT Internal Medicine; ATTEND Internal Medicine
DX: A04.7 Enterocolitis due to Clostridium difficile (principal); K57.32 Diverticulitis of large intestine without perforation or abscess without bleeding; M35.00 Sjogren syndrome, unspecified; Z79.82 Long term (current) use of aspirin; Z66 Do not resuscitate; I25.10 Atherosclerotic heart disease of native coronary artery without angina pectoris; N18.1 Chronic kidney disease, stage 1; I12.9 Hypertensive chronic kidney disease with stage 1 through stage 4 chronic kidney disease, or unspecified chronic kidney disease; I73.9 Peripheral vascular disease, unspecified